=== PATIENT | male | born 1965 | race Caucasian/White ===

== ENCOUNTER 2021-09-20 10:35 | Outpatient (CLI) | payer OTHER ==
[~2021-09-20] VITALS: Ht 175 cm; Wt 104.0 kg
[2021-09-20 10:40] VITALS: BP 119/44
[2021-09-20] MEDS ORDERED: ONDANSETRON 4 MG/2 ML (SDV) Z0FRAN IV PRN (11:15)
[2021-09-20] MEDS ORDERED: EPINEPHrine INJECTION 1 MG/ML AMP IM PRN (11:15)
[2021-09-20] MEDS ORDERED: BAMLANIVIMAB 700 MG/ETESEVIMAB 1,400 MG IN NS IV ONE ×3 (11:15)
[2021-09-20] MEDS ORDERED: ACETAMINOPHEN 500 MG TAB (TYLENOL) PO PRN (11:15)
[2021-09-20] MEDS ORDERED: diphenhydrAMINE 50 MG/ML INJ (BENADRYL) IV PRN (11:15)
[2021-09-20 12:31] VITALS: BP 114/63
== END 2021-09-20 12:39 | disposition home or self-care (01) ==
LOC: INFUSION 10:35
PROVIDERS: ATTEND Family Medicine
DX: U07.1 COVID-19 (principal)

== ENCOUNTER 2021-09-24 15:53 | Inpatient (IN) | payer OTHER ==
[~2021-09-24] VITALS: Ht 176 cm; Wt 93.6 kg
[2021-09-24 16:37] LABS: ABG PCO2 24 MMHG (35-45); ABG PH 7.56 (7.37-7.43); ABG PO2 61 MMHG (79-93)
[2021-09-24 16:38] LABS: ABG BASE EXCESS 0.6 MMOL/L (-2.5-2.5); ABG OXYGEN SATURATION 94 % (94-100); ABG TCO2 22.2 MMOL/L (21.0-31.0); ALLENS TEST YES-POS; PATIENT TEMP 37.6; VENTILATOR NO
[2021-09-24 16:41] LABS: WHITE BLOOD COUNT 14.5 10^3/uL (4.3-11.0)
[2021-09-24 16:42] LABS: BASOPHILS % (AUTO) 0 % (0-10); EOSINOPHILS % (AUTO) 0 % (0-10); HEMATOCRIT 45 % (40-54); HEMOGLOBIN 16.2 g/dL (13.3-17.7); LYMPHOCYTES # (AUTO) 1.1 X 10^3 (1.0-4.0); LYMPHOCYTES % (AUTO) 7 % (12-44); MEAN CORPUSCULAR HEMOGLOBIN 33 pg (25-34); MEAN CORPUSCULAR HGB CONC 36 g/dL (32-36); MEAN CORPUSCULAR VOLUME 92 fL (80-99); MEAN PLATELET VOLUME 10.1 fL (9.0-12.2); MONOCYTES % (AUTO) 5 % (0-12); NEUTROPHILS # (AUTO) 12.5 X 10^3 (1.8-7.8); NEUTROPHILS % (AUTO) 86 % (42-75); PLATELET COUNT 269 10^3/uL (130-400)
[2021-09-24 16:43] LABS: MONOCYTES # (AUTO) 0.7 X 10^3 (0.0-1.0)
[2021-09-24 16:46] LABS: INR 1.1 (0.8-1.4); PROTHROMBIN TIME PATIENT 14.7 SEC (12.2-14.7)
[2021-09-24 17:05] LABS: POTASSIUM 3.7 MMOL/L (3.6-5.0); SODIUM 133 MMOL/L (135-145)
[2021-09-24 17:06] LABS: BUN/CREATININE RATIO 12; CARBON DIOXIDE 22 MMOL/L (21-32); CHLORIDE 96 MMOL/L (98-107); CREATININE SERUM 1.37 MG/DL (0.60-1.30); GFR ESTIMATED 54
[2021-09-24 17:07] LABS: ALANINE AMINOTRANSFERASE 65 U/L (0-55); ALBUMIN 3.1 GM/DL (3.2-4.5); ALKALINE PHOSPHATASE 63 U/L (40-136); BILIRUBIN,TOTAL 1.7 MG/DL (0.1-1.0); CALCIUM 8.6 MG/DL (8.5-10.1); GLUCOSE 132 MG/DL (70-105); TOTAL PROTEIN 7.5 GM/DL (6.4-8.2)
[2021-09-24 17:15] LABS: INSPIRED O2 BPAP 80%
[2021-09-24 17:27] LABS: ATYPICAL LYMPHOCYTES 1 %; BAND NEUTROPHILS 6 %; LYMPHOCYTES % (MANUAL) 8 %; METAMYELOCYTES % 1 %; MONOCYTES % (MANUAL) 4 %; MYELOCYTES % 1 %; NEUTROPHILS % (MANUAL) 79 %
[2021-09-24 17:28] LABS: PLATELET ESTIMATE NORMAL; RBC MORPH NORMAL
[2021-09-24] MEDS ORDERED: CATHETER FLUSH 10 ML SYR IV PRN (17:30)
[2021-09-24] MEDS ORDERED: NS 100 ML (IVPB) BAG IV ONE (17:30)
[2021-09-24] MEDS ORDERED: IOHEXOL 350 MG/ML 100 ML (OMNIPAQUE 350) VIAL IV ONE (17:30)
[2021-09-24] MEDS ORDERED: HOLD METFORMIN - RECEIVED CONTRAST 20 ML VIAL IV SCH (17:30)
--- NOTE | 2021-09-24 18:02 | Diagnostic Imaging Report ---
INDICATION: Shortness of air. TIME OF EXAM: 5:43 PM COMPARISON: No prior studies are available for comparison. FINDINGS: The heart is enlarged. There are peripherally-based infiltrates in both lungs suggestive of pneumonia. This could be secondary to COVID 19 pneumonia. No effusion or pneumothorax is seen. IMPRESSION: Bilateral infiltrates consistent with pneumonia. Dictated by: Dictated on workstation # [id number]
--- NOTE | 2021-09-24 18:03 | Diagnostic Imaging Report ---
PROCEDURE: CT angiography Chest TECHNIQUE: After intravenous administration of contrast, thin section axial CT angiography of the chest was performed. 3D MIP reconstructions were made. All CT scans use one or more of the following dose optimizing techniques: automated exposure control, MA and/or KvP adjustment based on a patient size and exam type, or iterative reconstruction. INDICATION: Shortness of air COMPARISON: Chest radiograph from same day FINDINGS: Vasculature: No pulmonary emboli to level of segmental pulmonary arteries. Respiratory motion artifact limits assessment of the distal segmental and subsegmental pulmonary arteries in the lung bases. Thoracic aorta is normal in caliber. No aortic dissection or pseudoaneurysm. Heart and mediastinum: Visualized thyroid is normal. No supraclavicular, axillary, or intra-thoracic lymphadenopathy. The heart is normal in size without pericardial effusion. Pleura: No pleural effusion or pneumothorax. Lungs and airway: No endoluminal lesion in the trachea or central bronchi. Multifocal groundglass attenuation and consolidations are present throughout both lungs. Upper abdomen: Allowing for the phase of contrast, no acute abnormality in the upper abdomen is seen. Musculoskeletal: No concerning osseous lesion. IMPRESSION: 1. No pulmonary emboli or acute aortic syndrome. 2. Bilateral multifocal groundglass and consolidations is appearance most compatible with acute lung injury and frequently seen with Covid-19 or other atypical infection. Dictated by: Dictated on workstation # [id number]
[2021-09-24] MEDS ORDERED: CEFEPIME INJECTION 1,000 MG in NS (IVPB) 50 ML IV ONE (18:45)
[2021-09-24] MEDS ORDERED: FUROSEMIDE 40 MG/4 ML INJ (LASIX) IVP ONE (18:45)
[2021-09-24] MEDS ORDERED: polyethylene glycoL POWDER 17 GM (MIRALAX) PACK PO PRN (19:45)
[2021-09-24] MEDS ORDERED: morphine INJ 4 MG/ML 1 ML (VIAL/SYRINGE) IV PRN (19:45)
[2021-09-24] MEDS ORDERED: ACETAMINOPHEN 500 MG TAB (TYLENOL) PO PRN (19:45)
[2021-09-24] MEDS ORDERED: diphenhydrAMINE 25 MG TAB (BENADRYL) PO PRN (19:45)
[2021-09-24] MEDS ORDERED: ANTACID SUSP 30 ML UDC (MYLANTA) PO PRN (19:45)
[2021-09-24] MEDS ORDERED: MELATONIN 3 MG TABLET PO PRN (19:45)
[2021-09-24] MEDS ORDERED: KETOROLAC 15 MG/ML VIAL IV PRN (19:45)
[2021-09-24] MEDS ORDERED: ONDANSETRON 4 MG (ZOFRAN) ORAL DISSOLVE TAB PO PRN (19:45)
[2021-09-24] MEDS ORDERED: ONDANSETRON 4 MG/2 ML (SDV) Z0FRAN IV PRN (19:45)
[2021-09-24] MEDS ORDERED: diphenhydrAMINE 50 MG/ML INJ (BENADRYL) IVP PRN (19:45)
[2021-09-24] MEDS ORDERED: ACETAMINOPHEN 325 MG TABLET PO PRN (19:45)
[2021-09-24] MEDS ORDERED: BISACODYL 10 MG SUPP (DULCOLAX) PR PRN (19:45)
[2021-09-24 19:50] VITALS: BP 151/100
[2021-09-24 20:00] VITALS: BP 138/96
[2021-09-24 20:09] VITALS: BP 153/98
[2021-09-24] MEDS: NS IV 1000 ML 1,000 ML IV SCH (20:18)
[2021-09-24 20:24] VITALS: BP 135/76
[2021-09-24] MEDS ORDERED: RT-ALBUTEROL HFA 8.5 GM INHALER IH PRN (20:30)
[2021-09-24] MEDS ORDERED: NS (IVPB) 50 ML ONE (20:33)
[2021-09-24] MEDS ORDERED: CEFEPIME 1 GM/10 ML (MAXIPIME) VIAL ONE (20:33)
[2021-09-24] MEDS: CEFEPIME INJECTION 2,000 MG in NS (IVPB) 50 ML IV SCH (20:40)
[2021-09-24] MEDS: ENOXAPARIN 100 MG/1 ML (LOVENOX) SYR SC SCH ×2 (20:48→23:36)
[2021-09-24] MEDS: inSUlin ASPART (NovoLOG) 1 UNIT/0.01 ML (CHARGE PER UNIT) SC SCH (21:00)
[2021-09-24] MEDS: RT-ALBUTEROL HFA 8.5 GM INHALER IH SCH (21:37)
[2021-09-24 21:38] VITALS: BP 113/79
--- NOTE | 2021-09-24 22:06 | Tele-ICU Consult ---
History of Present Illness History of Present Illness Date Seen by Provider: Sep 24, 2021 Time Seen by Provider: 22:06 History of Present Illness 55 yo M with COVID PNA, CXR shows bilateral peripheral infiltrates started on IV decadron, Cefepime, WBC 17k, D dimer 2.33, started on bid lovenox, given IV Lasix for BNP almost 1000 On BiPAP 25/09 FiO2 70%, tolerating well, did not do well on CPAP PMH HTN, not much medical attention, no previous surgeries, no EtOH, no smoking not vaccinated for COVID, got flu vaccine Allergies and Home Medications Allergies Coded Allergies: No Known Drug Allergies (Unverified , 09/20/21) Past Medical/Social/Family Hx Patient Social History Tobacco Use?: No Use of E-Cig and/or Vaping dev: No Substance use?: No Alcohol Use?: No Pt stated abuse/neglect: No Immunizations Up To Date Influenza Vaccine Up-to-Date: Yes; Up-to-Date First/Initial COVID19 Vaccinat: n/a Current Status Advance Directives: No Communicates: Verbally Primary Language: Slovenian Preferred Spoken Language: Slovenian Is interpretation needed?: No Implanted or Applied Medical D: None Review of Systems Constitutional: see HPI Focused Exam Lactate Level 09/24/21 16:05: Lactic Acid Level 2.68*H Height, Weight, BMI Height: '" Weight: lbs. oz. kg; 32.28 BMI Method: Exam Exam Patient acknowledged, consented, and participated in this virtual visit which was conducted using real time audio/video Vital Signs Date Time Temp Pulse Resp B/P (MAP) Pulse Ox O2 Delivery O2 Flow Rate FiO2 09/24/21 21:38 90 27 91 70.00 09/24/21 20:48 38.6 09/24/21 20:24 37.3 97 94 100 09/24/21 20:19 38.8 09/24/21 20:09 101 31 95 70.00 09/24/21 20:00 38.8 101 31 138/96 (110) NIV Bilevel 70.00 09/24/21 19:50 94 NIV Bilevel 70 09/24/21 19:50 38.8 105 27 151/100 (117) 85 NIV CPAP 09/24/21 19:20 93 34 128/78 93 NIV Bilevel 100.00 09/24/21 16:35 NIV Bilevel 09/24/21 16:21 95 NIV Bilevel 80 09/24/21 16:00 37.3 97 24 135/76 (95) 94 NIV Bilevel Height & Weight Height: '" Weight: lbs. oz. kg; 32.28 BMI Method: General Appearance: Mild Distress Respiratory: Decreased Breath Sounds Cardiovascular: Regular Rate, Rhythm, No Edema, Tachycardia Capillary Refill: Less Than 3 Seconds Gastrointestinal: normal bowel sounds, non tender, soft Results Lab Laboratory Tests 09/24/21 16:05 Assessment/Plan Assessment/Plan COVID PNA, will continue present meds, watch SpO2, leave on BiPAP for now Critical Care: Critically Ill Patient Time spent with patient (mins): 30 TERRY MELENDREZ MD Sep 24, 2021 22:06
[2021-09-25] MEDS: NS IV 1000 ML 1,000 ML IV SCH ×3 (02:26→18:52)
[2021-09-25 02:45] VITALS: BP 112/76
[2021-09-25] MEDS: RT-ALBUTEROL HFA 8.5 GM INHALER IH SCH ×6 (02:45→22:33)
[2021-09-25 05:08] LABS: ABG BASE EXCESS -2.3 MMOL/L (-2.5-2.5); ABG OXYGEN SATURATION 98 % (94-100); ABG PCO2 28 MMHG (35-45); ABG PH 7.48 (7.37-7.43); ABG PO2 100 MMHG (79-93); ABG TCO2 21.5 MMOL/L (21.0-31.0); ALLENS TEST YES-POS; INSPIRED O2 70%; PATIENT TEMP 36.4; VENTILATOR NO
[2021-09-25 06:09] LABS: BASOPHILS % (AUTO) 0 % (0-10); EOSINOPHILS % (AUTO) 0 % (0-10); HEMATOCRIT 41 % (40-54); HEMOGLOBIN 14.5 g/dL (13.3-17.7); LYMPHOCYTES # (AUTO) 0.7 10^3/uL (1.0-4.0); LYMPHOCYTES % (AUTO) 6 % (12-44); MEAN CORPUSCULAR HEMOGLOBIN 33 pg (25-34); MEAN CORPUSCULAR HGB CONC 35 g/dL (32-36); MEAN CORPUSCULAR VOLUME 95 fL (80-99); MEAN PLATELET VOLUME 9.9 fL (9.0-12.2); MONOCYTES # (AUTO) 0.4 10^3/uL (0.0-1.0); MONOCYTES % (AUTO) 3 % (0-12); NEUTROPHILS # (AUTO) 11.5 10^3/uL (1.8-7.8); NEUTROPHILS % (AUTO) 90 % (42-75); PLATELET COUNT 222 10^3/uL (130-400); WHITE BLOOD COUNT 12.9 10^3/uL (4.3-11.0)
[2021-09-25 06:30] LABS: ALBUMIN 2.9 GM/DL (3.2-4.5); POTASSIUM 3.2 MMOL/L (3.6-5.0)
[2021-09-25 06:31] LABS: CALCIUM 8.2 MG/DL (8.5-10.1)
[2021-09-25 06:32] LABS: TOTAL PROTEIN 6.4 GM/DL (6.4-8.2)
[2021-09-25 06:34] LABS: BILIRUBIN,TOTAL 1.5 MG/DL (0.1-1.0)
[2021-09-25 06:36] LABS: CREATININE SERUM 1.14 MG/DL (0.60-1.30); PHOSPHORUS 3.9 MG/DL (2.3-4.7)
[2021-09-25] MEDS: inSUlin ASPART (NovoLOG) 1 UNIT/0.01 ML (CHARGE PER UNIT) SC SCH ×4 (06:38→20:38)
[2021-09-25 06:39] LABS: MAGNESIUM 2.4 MG/DL (1.6-2.4)
[2021-09-25] MEDS: MAGNESIUM 1 GM/100 ML IVPB 100 ML IV SCH (06:39)
[2021-09-25] MEDS: POTASSIUM CL 10MEQ/50ML IVPB 50 ML IV SCH (06:40)
[2021-09-25] MEDS: KCL 20 MEQ TAB (K-DUR) PO SCH (06:41)
--- NOTE | 2021-09-25 06:52 | History & Physical-Hospitalist ---
History of Present Illness HPI/Chief Complaint CC: Respiratory failure HPI: [facility] 55[facility] who presents with Covid-19 acute hypoxic respiratory failure. He is currently on BiPAP at 70%, having real difficulty with compliance with change of positions and lying on his side. Patient denies any pain. Check meds and labs. Talked to RN. Source: patient Exam Limitations: clinical condition Date Seen 09/25/21 Time Seen by a Provider: 10:00 Attending Physician Ines Francois Pankaj K MD Referring Physician Date of Admission Sep 24, 2021 at 19:48 Home Medications & Allergies Home Medications Reviewed patient Home Medication Reconciliation performed by pharmacy medication reconciliations remote broadcast technician and/or nursing. Patients Allergies have been reviewed. Allergies Allergies Coded Allergies No Known Drug Allergies ([id number]/17/21) Past Gzgyddy-Lgietg-Xhddqb Hx Patient Social History Marrital Status: single Tobacco Use?: No Smoking Status: Current Everyday Smoker Use of E-Cig and/or Vaping dev: No Substance use?: No Alcohol Use?: No Pt feels they are or have been: No Immunizations Up To Date First/Initial COVID19 Vaccinat: n/a Current Status Advance Directives: No Communicates: Verbally Primary Language: Croatian Preferred Spoken Language: Croatian Is interpretation needed?: No Implanted or Applied Medical D: None Past Medical History Hypertension Review of Systems Constitutional: see HPI, dizziness, fever, malaise, weakness EENTM: no symptoms reported Respiratory: dyspnea on exertion, short of breath Cardiovascular: no symptoms reported Gastrointestinal: no symptoms reported Genitourinary: no symptoms reported Musculoskeletal: no symptoms reported Skin: no symptoms reported Psychiatric/Neurological: Anxiety All Other Systems Reviewed Negative Unless Noted: Yes Physical Exam Physical Exam Vital Signs Vital Signs - First Documented 09/24/21 09/24/21 09/24/21 16:00 16:21 19:20 Temp 37.3 Pulse 97 Resp 24 B/P (MAP) 135/76 (95) Pulse Ox 94 O2 Delivery NIV Bilevel O2 Flow Rate 100.00 FiO2 80 Capillary Refill : Less Than 3 Seconds Height, Weight, BMI Height: '" Weight: lbs. oz. kg; 32.28 BMI Method: General Appearance: Anxious, Chronically ill, Mild Distress Eyes: Right Eye Normal Inspection, Right Eye PERRL HEENT: PERRL/EOMI, Normal ENT Inspection, Pharynx Normal, Moist Mucous Membranes Neck: Full Range of Motion, Normal Inspection, Non Tender Respiratory: Chest Non Tender, Lungs Clear, No Respiratory Distress, Accessory Muscle Use, Decreased Breath Sounds Cardiovascular: Regular Rate, Rhythm, No Edema, No Gallop, No JVD, No Murmur, Normal Peripheral Pulses Gastrointestinal: Normal Bowel Sounds, No Organomegaly, No Pulsatile Mass, Non Tender, Soft Back: Normal Inspection, No CVA Tenderness, No Vertebral Tenderness Extremity: Normal Capillary Refill, Normal Inspection, Normal Range of Motion, Non Tender, No Calf Tenderness, No Pedal Edema Neurologic/Psychiatric: Alert, Oriented x3, No Motor/Sensory Deficits, Normal Mood/Affect Skin: Normal Color, Warm/Dry Lymphatic: No Adenopathy Results Results/Procedures Labs Laboratory Tests 09/24/21 16:05 09/25/21 05:40 Patient resulted labs reviewed. Assessment/Plan Admission Diagnosis Assessment: Acute hypoxic respiratory failure COVID-19 pneumonia Smoker Hypertension Plan: COVID-19 protocol BiPAP Vapotherm High risk for intubation Admission Status: Inpatient Order (span 2 midnights) Reason for Inpatient Admission: Respiratory failure Diagnosis/Problems Diagnosis/Problems (1) INES CHAUDHRY DO Sep 25, 2021 06:52
[2021-09-25 07:48] VITALS: BP 124/84
[2021-09-25] MEDS ORDERED: KCL 20 MEQ TAB (K-DUR) PO ONE ×2 (08:00→10:00)
[2021-09-25] MEDS: CEFEPIME INJECTION 2,000 MG in NS (IVPB) 50 ML IV SCH ×2 (09:48→19:54)
[2021-09-25] MEDS ORDERED: MULT-1067 PO (10:13)
[2021-09-25] MEDS ORDERED: ATEN25TA PO (10:13)
[2021-09-25] MEDS ORDERED: LOSA50TA63 PO (10:13)
[2021-09-25 10:48] VITALS: BP 133/96
--- NOTE | 2021-09-25 11:21 | Tele-ICU Progress Note ---
Subjective Date Seen by a Provider: Sep 25, 2021 Time Seen by a Provider: 11:21 Subjective/Events-last exam he was earlier tried on vapotherm but did not tolerate. back on bipap Review of Systems ros per RN Sepsis Event Evaluation Height, Weight, BMI Height: '" Weight: lbs. oz. kg; 32.28 BMI Method: Focused Exam Lactate Level 09/24/21 16:05: Lactic Acid Level 2.68*H 09/24/21 22:21: Lactic Acid Level 1.74 Exam Exam Patient acknowledged, consented, and participated in this virtual visit which was conducted using real time audio/video Vital Signs Date Time Temp Pulse Resp B/P (MAP) Pulse Ox O2 Delivery O2 Flow Rate FiO2 09/25/21 10:50 90 Vapotherm 40.00 09/25/21 10:48 82 27 91 70.00 09/25/21 08:00 94 NIV Bilevel 70 09/25/21 08:00 36.9 09/25/21 07:48 77 28 93 70.00 09/25/21 07:00 77 09/25/21 06:00 78 19 124/84 93 NIV Bilevel 70.00 09/25/21 05:00 80 23 131/91 95 NIV Bilevel 70.00 09/25/21 04:00 36.4 78 24 137/96 94 NIV Bilevel 70.00 09/25/21 04:00 78 24 137/96 94 NIV Bilevel 70.00 09/25/21 03:57 96 NIV Bilevel 70 09/25/21 03:00 78 23 121/86 94 NIV Bilevel 70.00 09/25/21 02:45 77 29 93 70.00 09/25/21 02:00 80 27 112/76 93 NIV Bilevel 70.00 09/25/21 01:00 79 25 114/77 93 NIV Bilevel 70.00 09/25/21 01:00 80 09/25/21 00:00 80 28 109/81 94 NIV Bilevel 70.00 09/24/21 23:56 36.7 09/24/21 23:24 94 NIV Bilevel 70 09/24/21 23:00 83 28 117/81 92 NIV Bilevel 70.00 09/24/21 22:45 36.8 09/24/21 22:00 87 29 115/76 91 NIV Bilevel 70.00 09/24/21 21:38 90 27 91 70.00 09/24/21 21:00 98 31 120/88 93 NIV Bilevel 70.00 09/24/21 20:48 38.6 09/24/21 20:45 99 34 127/84 94 NIV Bilevel 70.00 09/24/21 20:30 101 34 125/89 93 NIV Bilevel 70.00 09/24/21 20:24 37.3 97 94 100 09/24/21 20:19 38.8 09/24/21 20:15 101 32 138/96 95 NIV Bilevel 70.00 09/24/21 20:09 101 31 95 70.00 09/24/21 20:00 38.8 101 31 138/96 (110) NIV Bilevel 70.00 09/24/21 20:00 100 25 153/98 95 NIV Bilevel 70.00 09/24/21 19:57 101 09/24/21 19:55 102 153/100 NIV Bilevel 70.00 09/24/21 19:50 94 NIV Bilevel 70 09/24/21 19:50 38.8 105 27 151/100 (117) 85 NIV CPAP 09/24/21 19:20 93 34 128/78 93 NIV Bilevel 100.00 09/24/21 16:35 NIV Bilevel 09/24/21 16:21 95 NIV Bilevel 80 09/24/21 16:00 37.3 97 24 135/76 (95) 94 NIV Bilevel I & O 09/25/21 07:00 Intake Total 1900 ml Output Total 1550 ml Balance 350 ml Height & Weight Height: '" Weight: lbs. oz. kg; 32.28 BMI Method: General Appearance: Mild Distress Respiratory: Decreased Breath Sounds Cardiovascular: Regular Rate, Rhythm, No Edema, Tachycardia Capillary Refill: Less Than 3 Seconds Gastrointestinal: normal bowel sounds, non tender, soft Other comments pe per rn Results Lab Laboratory Tests 09/24/21 16:05 09/25/21 05:40 Assessment/Plan Assessment/Plan 1. covid-19 viral pneumonia. 2. acute hypoxic respiratory failure due to aboe 3. High risk for dvt and pe. 4. Suspected super added bacterial pneumonia. plan. 1. continue cureent meds. 2. continue bipap. 3. monitor blood sugars. 4. dvt and ulcer prophylaxis Critical Care: Critically Ill Patient Time spent with patient (mins): 25 MARIFER DIAZ MD Sep 25, 2021 11:21
[2021-09-25 14:34] VITALS: BP 134/84
[2021-09-25 19:13] VITALS: BP 129/87
[2021-09-25] MEDS: ENOXAPARIN 100 MG/1 ML (LOVENOX) SYR SC SCH (19:55)
[2021-09-25 22:33] VITALS: BP 122/70
[2021-09-26] MEDS: NS IV 1000 ML 1,000 ML IV SCH ×3 (02:20→19:55)
[2021-09-26 02:37] VITALS: BP 141/91
[2021-09-26] MEDS: RT-ALBUTEROL HFA 8.5 GM INHALER IH SCH ×6 (02:37→22:52)
[2021-09-26 03:36] LABS: ABG OXYGEN SATURATION 94 % (94-100); ABG PCO2 28 MMHG (35-45); ABG PH 7.47 (7.37-7.43); ABG PO2 66 MMHG (79-93)
[2021-09-26 03:39] LABS: ALLENS TEST POSITIVE; INSPIRED O2 BIPAP 70%; PATIENT TEMP 36.4; VENTILATOR NO
[2021-09-26 06:08] LABS: BASOPHILS % (AUTO) 0 % (0-10); EOSINOPHILS % (AUTO) 0 % (0-10); HEMATOCRIT 39 % (40-54); HEMOGLOBIN 13.5 g/dL (13.3-17.7); LYMPHOCYTES # (AUTO) 0.7 10^3/uL (1.0-4.0); LYMPHOCYTES % (AUTO) 4 % (12-44); MEAN CORPUSCULAR HEMOGLOBIN 33 pg (25-34); MEAN CORPUSCULAR HGB CONC 35 g/dL (32-36); MEAN CORPUSCULAR VOLUME 95 fL (80-99); MONOCYTES # (AUTO) 0.6 10^3/uL (0.0-1.0); MONOCYTES % (AUTO) 3 % (0-12); NEUTROPHILS # (AUTO) 15.2 10^3/uL (1.8-7.8); NEUTROPHILS % (AUTO) 91 % (42-75); PLATELET COUNT 236 10^3/uL (130-400); WHITE BLOOD COUNT 16.7 10^3/uL (4.3-11.0)
[2021-09-26 06:33] LABS: ALBUMIN 2.6 GM/DL (3.2-4.5); BILIRUBIN,TOTAL 0.8 MG/DL (0.1-1.0); CALCIUM 8.6 MG/DL (8.5-10.1); CREATININE SERUM 0.82 MG/DL (0.60-1.30); MAGNESIUM 2.2 MG/DL (1.6-2.4); PHOSPHORUS 2.3 MG/DL (2.3-4.7); POTASSIUM 3.8 MMOL/L (3.6-5.0); TOTAL PROTEIN 6.1 GM/DL (6.4-8.2)
[2021-09-26] MEDS: KCL 20 MEQ TAB (K-DUR) PO SCH (06:43)
[2021-09-26] MEDS: POTASSIUM CL 10MEQ/50ML IVPB 50 ML IV SCH (06:43)
[2021-09-26] MEDS: MAGNESIUM 1 GM/100 ML IVPB 100 ML IV SCH (06:43)
[2021-09-26] MEDS: inSUlin ASPART (NovoLOG) 1 UNIT/0.01 ML (CHARGE PER UNIT) SC SCH ×4 (06:44→21:00)
[2021-09-26 07:58] VITALS: BP 152/88
[2021-09-26] MEDS: ATENOLOL 25 MG (TENORMIN) TAB PO SCH (10:30)
[2021-09-26] MEDS: MULTIVIT W/MINERALS TAB (THERAGRAN M) PO SCH (10:30)
[2021-09-26] MEDS: LOSARTAN 50 MG (COZAAR) TAB PO SCH (10:30)
[2021-09-26] MEDS: ENOXAPARIN 100 MG/1 ML (LOVENOX) SYR SC SCH ×2 (10:30→19:56)
[2021-09-26] MEDS: CEFEPIME INJECTION 2,000 MG in NS (IVPB) 50 ML IV SCH ×2 (10:31→19:56)
--- NOTE | 2021-09-26 10:50 | Progress Note - Hospitalist ---
Subjective HPI/CC On Admission Date Seen by Provider: Sep 26, 2021 Time Seen by Provider: 11:30 CC: Respiratory failure HPI: This is a 55yoWM clinic Pt of [facility] who presents with Covid-19 acute hypoxic respiratory failure. He is currently on BiPAP at 70%, having real difficulty with compliance with change of positions and lying on his side. Patient denies any pain. Check meds and labs. Talked to RN. Subjective/Events-last exam Pt doing about the same Pt needs Actemra: Talked to him about the risk and benefits of this medication the best I could and he had no questions and agreed for infusion Checked meds and labs Pneumonia treated with standard protocol Feels like he is doing a little better today Review of Systems General: Fatigue, Malaise Pulmonary: Dyspnea Focused Exam Lactate Level 09/24/21 16:05: Lactic Acid Level 2.68*H 09/24/21 22:21: Lactic Acid Level 1.74 Objective Exam Vital Signs Vital Signs Date Time Temp Pulse Resp B/P (MAP) Pulse Ox O2 Delivery O2 Flow Rate FiO2 09/27/21 04:00 80 27 151/96 92 NIV Bilevel 70.00 09/27/21 03:55 70 09/27/21 03:54 36.3 Capillary Refill : Less Than 3 Seconds General Appearance: Anxious, Chronically ill, Mild Distress, Obese Respiratory: Lungs Clear, Normal Breath Sounds, Decreased Breath Sounds Cardiovascular: Regular Rate, Rhythm Neurologic/Psychiatric: Alert, Oriented x3, No Motor/Sensory Deficits, Normal Mood/Affect Results/Procedures Lab Laboratory Tests 09/26/21 06:00 Patient resulted labs reviewed. Assessment/Plan Assessment and Plan Assess & Plan/Chief Complaint Assessment: Acute hypoxic respiratory failure COVID-19 pneumonia Smoker Hypertension Plan: COVID-19 protocol BiPAP Vapotherm High risk for intubation 09/26/2021: Actemra infusion High risk for intubation Critical Care Critically Ill Patient Diagnosis/Problems Diagnosis/Problems (1) MONSERRAT CHAUDHRY DO Sep 26, 2021 10:49
[2021-09-26 14:39] VITALS: BP 135/77
[2021-09-26 18:53] VITALS: BP 135/77
[2021-09-26 22:52] VITALS: BP 160/92
[2021-09-27 01:53] VITALS: BP 150/94
[2021-09-27] MEDS: RT-ALBUTEROL HFA 8.5 GM INHALER IH SCH ×6 (01:53→22:28)
[2021-09-27] MEDS: NS IV 1000 ML 1,000 ML IV SCH ×3 (03:30→21:19)
[2021-09-27 03:52] LABS: ABG BASE EXCESS -4.3 MMOL/L (-2.5-2.5); ABG OXYGEN SATURATION 90 % (94-100); ABG PCO2 24 MMHG (35-45); ABG PO2 53 MMHG (79-93); ABG TCO2 19.3 MMOL/L (21.0-31.0)
[2021-09-27 03:54] LABS: ALLENS TEST POSITIVE; INSPIRED O2 % BIPAP; PATIENT TEMP 36.3; VENTILATOR NO
[2021-09-27 06:06] LABS: BASOPHILS % (AUTO) 0 % (0-10); EOSINOPHILS % (AUTO) 0 % (0-10); HEMATOCRIT 40 % (40-54); HEMOGLOBIN 14.1 g/dL (13.3-17.7); LYMPHOCYTES # (AUTO) 0.7 10^3/uL (1.0-4.0); LYMPHOCYTES % (AUTO) 5 % (12-44); MEAN CORPUSCULAR HEMOGLOBIN 34 pg (25-34); MEAN CORPUSCULAR HGB CONC 35 g/dL (32-36); MEAN CORPUSCULAR VOLUME 96 fL (80-99); MEAN PLATELET VOLUME 9.5 fL (9.0-12.2); MONOCYTES # (AUTO) 0.5 10^3/uL (0.0-1.0); MONOCYTES % (AUTO) 4 % (0-12); NEUTROPHILS # (AUTO) 11.9 10^3/uL (1.8-7.8); NEUTROPHILS % (AUTO) 89 % (42-75); PLATELET COUNT 244 10^3/uL (130-400); WHITE BLOOD COUNT 13.4 10^3/uL (4.3-11.0)
--- NOTE | 2021-09-27 06:16 | Progress Note - Hospitalist ---
Subjective HPI/CC On Admission Date Seen by Provider: Sep 27, 2021 Time Seen by Provider: 11:00 CC: Respiratory failure HPI: This is a 55yoWM clinic Pt of [facility] who presents with Covid-19 acute hypoxic respiratory failure. He is currently on BiPAP at 70%, having real difficulty with compliance with change of positions and lying on his side. Patient denies any pain. Check meds and labs. Talked to RN. Subjective/Events-last exam Patient about the same BiPAP dependent Will receive Actemra today I spoke with him regarding the benefits and the risks Checked meds labs Review of Systems General: Fatigue, Malaise Pulmonary: Dyspnea Focused Exam Lactate Level 09/24/21 22:21: Lactic Acid Level 1.74 Objective Exam Vital Signs Vital Signs Date Time Temp Pulse Resp B/P (MAP) Pulse Ox O2 Delivery O2 Flow Rate FiO2 09/27/21 14:36 75 28 94 65.00 09/27/21 14:00 151/94 NIV Bilevel 09/27/21 12:42 65 09/27/21 12:00 37.1 Capillary Refill : Less Than 3 Seconds General Appearance: No Apparent Distress, WD/WN, Anxious, Chronically ill Respiratory: No Respiratory Distress, Accessory Muscle Use, Decreased Breath Sounds Cardiovascular: Regular Rate, Rhythm Neurologic/Psychiatric: Alert, Oriented x3, No Motor/Sensory Deficits, Normal Mood/Affect Results/Procedures Lab Laboratory Tests 09/27/21 05:56 Patient resulted labs reviewed. Assessment/Plan Assessment and Plan Assess & Plan/Chief Complaint Assessment: Acute hypoxic respiratory failure COVID-19 pneumonia Smoker Hypertension Plan: COVID-19 protocol BiPAP Vapotherm High risk for intubation 09/26/2021: Actemra infusion High risk for intubation 09/27/2021: Actemra BiPAP Critical Care Critically Ill Patient Diagnosis/Problems Diagnosis/Problems (1) MONSERRAT CHAUDHRY DO Sep 27, 2021 06:16
[2021-09-27 06:35] LABS: ALBUMIN 2.6 GM/DL (3.2-4.5); BILIRUBIN,TOTAL 0.7 MG/DL (0.1-1.0); CALCIUM 8.3 MG/DL (8.5-10.1); CREATININE SERUM 0.87 MG/DL (0.60-1.30); PHOSPHORUS 2.7 MG/DL (2.3-4.7)
[2021-09-27] MEDS: inSUlin ASPART (NovoLOG) 1 UNIT/0.01 ML (CHARGE PER UNIT) SC SCH ×4 (07:45→20:43)
[2021-09-27] MEDS: POTASSIUM CL 10MEQ/50ML IVPB 50 ML IV SCH (07:46)
[2021-09-27] MEDS: MAGNESIUM 1 GM/100 ML IVPB 100 ML IV SCH (07:46)
[2021-09-27] MEDS: KCL 20 MEQ TAB (K-DUR) PO SCH (07:46)
[2021-09-27 07:57] VITALS: BP 164/106
[2021-09-27] MEDS: MULTIVIT W/MINERALS TAB (THERAGRAN M) PO SCH (08:19)
[2021-09-27] MEDS: ENOXAPARIN 100 MG/1 ML (LOVENOX) SYR SC SCH ×2 (08:19→18:53)
[2021-09-27] MEDS: LOSARTAN 50 MG (COZAAR) TAB PO SCH (08:19)
[2021-09-27] MEDS: ATENOLOL 25 MG (TENORMIN) TAB PO SCH (08:19)
[2021-09-27] MEDS: CEFEPIME INJECTION 2,000 MG in NS (IVPB) 50 ML IV SCH ×2 (08:19→20:33)
[2021-09-27] MEDS ORDERED: hydrALAZINE (APESOLINE) 20 MG/ML VIAL IV PRN (10:45)
[2021-09-27 11:05] VITALS: BP 161/93
--- NOTE | 2021-09-27 11:36 | Tele-ICU Progress Note ---
Subjective Date Seen by a Provider: Sep 27, 2021 Time Seen by a Provider: 11:35 Sepsis Event Evaluation Height, Weight, BMI Height: '" Weight: lbs. oz. kg; 32.28 BMI Method: Focused Exam Lactate Level 09/24/21 16:05: Lactic Acid Level 2.68*H 09/24/21 22:21: Lactic Acid Level 1.74 Exam Exam Patient acknowledged, consented, and participated in this virtual visit which was conducted using real time audio/video Vital Signs Date Time Temp Pulse Resp B/P (MAP) Pulse Ox O2 Delivery O2 Flow Rate FiO2 09/27/21 11:05 82 25 93 65.00 09/27/21 10:00 82 28 148/94 90 NIV Bilevel 65.00 09/27/21 09:00 81 27 169/101 89 NIV Bilevel 65.00 09/27/21 08:24 NIV Bilevel 65.00 09/27/21 08:00 82 23 164/96 90 NIV Bilevel 70.00 09/27/21 08:00 92 NIV Bilevel 65 09/27/21 07:57 82 26 90 65.00 09/27/21 07:51 36.8 09/27/21 07:00 75 09/27/21 07:00 75 21 164/106 92 NIV Bilevel 70.00 09/27/21 06:13 95 NIV Bilevel 70 09/27/21 06:00 80 25 169/94 93 NIV Bilevel 70.00 09/27/21 05:00 74 25 144/93 90 NIV Bilevel 70.00 09/27/21 04:00 80 27 151/96 92 NIV Bilevel 70.00 09/27/21 03:55 92 NIV Bilevel 70 09/27/21 03:54 36.3 NIV Bilevel 70.00 09/27/21 03:00 86 22 161/98 90 NIV Bilevel 65.00 09/27/21 02:00 81 23 148/89 93 NIV Bilevel 65.00 09/27/21 01:53 78 20 95 65.00 09/27/21 01:00 77 09/27/21 01:00 77 22 158/95 91 NIV Bilevel 65.00 09/27/21 00:00 77 24 151/91 91 NIV Bilevel 65.00 09/27/21 00:00 36.2 NIV Bilevel 65.00 09/26/21 23:09 95 NIV Bilevel 60 09/26/21 23:00 77 24 157/100 90 NIV Bilevel 60.00 09/26/21 22:52 80 29 88 60.00 09/26/21 22:00 78 25 154/94 92 NIV Bilevel 60.00 09/26/21 21:00 80 25 112/84 90 NIV Bilevel 60.00 09/26/21 20:47 36.3 09/26/21 20:00 81 27 153/95 90 NIV Bilevel 60.00 09/26/21 20:00 95 NIV Bilevel 60 09/26/21 19:00 85 25 138/80 90 NIV Bilevel 60.00 09/26/21 19:00 85 09/26/21 18:53 86 26 91 60.00 09/26/21 18:00 87 27 136/77 92 NIV Bilevel 60.00 09/26/21 17:00 79 25 125/84 93 NIV Bilevel 60.00 09/26/21 16:26 95 NIV Bilevel 60 09/26/21 16:00 84 26 127/78 93 NIV Bilevel 60.00 09/26/21 15:50 35.8 09/26/21 15:00 82 25 135/77 92 NIV Bilevel 60.00 09/26/21 14:39 82 28 92 60.00 09/26/21 14:00 79 26 134/83 93 NIV Bilevel 60.00 09/26/21 13:05 84 09/26/21 13:00 80 25 131/88 93 NIV Bilevel 60.00 09/26/21 12:36 95 NIV Bilevel 70 09/26/21 12:00 83 24 135/84 95 NIV Bilevel 60.00 09/26/21 11:40 37.0 I & O 09/27/21 07:00 Intake Total 2990 ml Output Total 1700 ml Balance 1290 ml Height & Weight Height: '" Weight: lbs. oz. kg; 32.28 BMI Method: General Appearance: Anxious, Chronically ill, Mild Distress, Obese HEENT: PERRL/EOMI, Normal ENT Inspection, Pharynx Normal, Moist Mucous Membranes Neck: Full Range of Motion, Normal Inspection, Non Tender Respiratory: Lungs Clear, Normal Breath Sounds, Decreased Breath Sounds Cardiovascular: Regular Rate, Rhythm Capillary Refill: Less Than 3 Seconds Gastrointestinal: normal bowel sounds, non tender, soft Extremity: Normal Capillary Refill, Normal Inspection, Normal Range of Motion, Non Tender, No Calf Tenderness, No Pedal Edema Neurologic/Psychiatric: Alert, Oriented x3, No Motor/Sensory Deficits, Normal Mood/Affect Skin: Normal Color, Warm/Dry Lymphatic: No Adenopathy Results Lab Laboratory Tests 09/26/21 06:00 09/27/21 05:56 Assessment/Plan Assessment/Plan (Tele-ICU Physician , Progress Note ) Available chart/ vitals / labs / Images reviewed Video assessment done using teleICU camera, rest of exam as per RN Discussed with RN , EXAM PER RN Events overnight : Afebrile FiO2 - I/O = Drips: Pressors: , hemodynamically stable Consultants: Hospital course: 09/24- COVID 09/27 - BIPAP 65% A/P ARF/ COVID ( CTA neg for pe 09/24 - BIPAP 65% - prone COVID PNA - steroids - lovenox full dose - sprobably can be changed to proph dose Suspected bact PNA- cont abx Lines : (Central Line Necessity Reviewed) Nur: OG: Nutrition: po Analgesia: Anxiety/ delirium VTE Prophylaxis: lamont 70 bid Stress Ulcer Prophylaxis: Glycemic Control: Plans in collaboration with bedside consultants and IM MDs. Discussed with RN to reach out if any questions or concerns A total of 33 minutes of critical care time was devoted to this patient today, required to treat and/or prevent further deterioration of critical care condition ( as above) . SURESH SIBLEY MD Sep 27, 2021 11:36
[2021-09-27] MEDS ORDERED: TOCILIZUMAB INJECTION (NON-FOR 800 MG in NS (IVPB) 60 ML IV ONE (14:00)
[2021-09-27 14:36] VITALS: BP 161/93
[2021-09-27] MEDS: ALPRAZolam 0.25 MG (XANAX) TAB PO PRN (15:32)
[2021-09-27 19:57] VITALS: BP 152/90
[2021-09-27] MEDS: ACYCLOVIR 400 MG TABLET (ZOVIRAX) PO SCH (20:33)
[2021-09-27 22:28] VITALS: BP 130/86
[2021-09-28 01:54] VITALS: BP 148/90
[2021-09-28] MEDS: RT-ALBUTEROL HFA 8.5 GM INHALER IH SCH ×6 (01:54→21:09)
[2021-09-28] MEDS: NS IV 1000 ML 1,000 ML IV SCH ×2 (05:18→11:49)
[2021-09-28 05:30] LABS: ABG BASE EXCESS -2.8 MMOL/L (-2.5-2.5); ABG OXYGEN SATURATION 94 % (94-100); ABG PCO2 23 MMHG (35-45); ABG PH 7.54 (7.37-7.43); ABG PO2 61 MMHG (79-93); ABG TCO2 20.5 MMOL/L (21.0-31.0)
[2021-09-28 05:30] LABS: BASOPHILS % (AUTO) 0 % (0-10); EOSINOPHILS # (AUTO) 0.1 10^3/uL (0.0-0.3); EOSINOPHILS % (AUTO) 1 % (0-10); HEMATOCRIT 39 % (40-54); HEMOGLOBIN 13.5 g/dL (13.3-17.7); LYMPHOCYTES # (AUTO) 0.7 10^3/uL (1.0-4.0); LYMPHOCYTES % (AUTO) 7 % (12-44); MEAN CORPUSCULAR HEMOGLOBIN 33 pg (25-34); MEAN CORPUSCULAR HGB CONC 35 g/dL (32-36); MEAN CORPUSCULAR VOLUME 95 fL (80-99); MEAN PLATELET VOLUME 9.6 fL (9.0-12.2); MONOCYTES # (AUTO) 0.4 10^3/uL (0.0-1.0); MONOCYTES % (AUTO) 3 % (0-12); NEUTROPHILS # (AUTO) 8.9 10^3/uL (1.8-7.8); NEUTROPHILS % (AUTO) 87 % (42-75); PLATELET COUNT 210 10^3/uL (130-400); WHITE BLOOD COUNT 10.2 10^3/uL (4.3-11.0)
[2021-09-28 05:32] LABS: ALLENS TEST YES-POS; INSPIRED O2 85%; PATIENT TEMP 35.4; VENTILATOR NO
[2021-09-28 05:49] LABS: ALBUMIN 2.3 GM/DL (3.2-4.5); POTASSIUM 3.9 MMOL/L (3.6-5.0)
[2021-09-28 05:51] LABS: CALCIUM 7.8 MG/DL (8.5-10.1)
[2021-09-28 05:52] LABS: TOTAL PROTEIN 5.3 GM/DL (6.4-8.2)
[2021-09-28 05:54] LABS: BILIRUBIN,TOTAL 0.8 MG/DL (0.1-1.0)
[2021-09-28 05:55] LABS: PHOSPHORUS 4.2 MG/DL (2.3-4.7)
[2021-09-28 05:56] LABS: CREATININE SERUM 0.75 MG/DL (0.60-1.30)
[2021-09-28 05:58] LABS: MAGNESIUM 2.1 MG/DL (1.6-2.4)
--- NOTE | 2021-09-28 06:07 | Progress Note - Hospitalist ---
Subjective HPI/CC On Admission Date Seen by Provider: Sep 28, 2021 Time Seen by Provider: 10:00 CC: Respiratory failure HPI: This is a 55yoWM clinic Pt of [facility] who presents with Covid-19 acute hypoxic respiratory failure. He is currently on BiPAP at 70%, having real difficulty with compliance with change of positions and lying on his side. Patient denies any pain. Check meds and labs. Talked to RN. Subjective/Events-last exam Patient about the same BiPAP dependent Updated patient on the plan Hopefully tomorrow Actemra will be helpful No BM yet Review of Systems General: Fatigue, Malaise Pulmonary: Dyspnea Objective Exam Vital Signs Vital Signs Date Time Temp Pulse Resp B/P (MAP) Pulse Ox O2 Delivery O2 Flow Rate FiO2 09/28/21 17:14 36.0 70 24 122/80 89 NIV Bilevel 85.00 09/28/21 03:50 85 Capillary Refill : Less Than 3 Seconds General Appearance: No Apparent Distress, WD/WN, Anxious, Chronically ill Respiratory: Lungs Clear, Normal Breath Sounds Cardiovascular: Regular Rate, Rhythm Neurologic/Psychiatric: Alert, Oriented x3 Results/Procedures Lab Laboratory Tests 09/28/21 05:08 Patient resulted labs reviewed. Assessment/Plan Assessment and Plan Assess & Plan/Chief Complaint Assessment: Acute hypoxic respiratory failure COVID-19 pneumonia Smoker Hypertension Plan: COVID-19 protocol BiPAP Vapotherm High risk for intubation 09/26/2021: Actemra infusion High risk for intubation 09/27/2021: Actemra BiPAP 09/28/2021: BiPAP dependent Critical Care Critically Ill Patient Diagnosis/Problems Diagnosis/Problems (1) MONSERRAT CHAUDHRY DO Sep 28, 2021 06:07
[2021-09-28] MEDS: POTASSIUM CL 10MEQ/50ML IVPB 50 ML IV SCH (06:12)
[2021-09-28] MEDS: MAGNESIUM 1 GM/100 ML IVPB 100 ML IV SCH (06:12)
[2021-09-28] MEDS: KCL 20 MEQ TAB (K-DUR) PO SCH (06:12)
[2021-09-28] MEDS: inSUlin ASPART (NovoLOG) 1 UNIT/0.01 ML (CHARGE PER UNIT) SC SCH ×4 (06:12→21:13)
[2021-09-28 06:47] VITALS: BP 147/85
[2021-09-28] MEDS: CEFEPIME INJECTION 2,000 MG in NS (IVPB) 50 ML IV SCH ×2 (10:08→20:04)
[2021-09-28] MEDS: LOSARTAN 50 MG (COZAAR) TAB PO SCH (10:08)
[2021-09-28] MEDS: ATENOLOL 25 MG (TENORMIN) TAB PO SCH (10:08)
[2021-09-28] MEDS: ACYCLOVIR 400 MG TABLET (ZOVIRAX) PO SCH ×2 (10:09→20:04)
[2021-09-28] MEDS: ENOXAPARIN 100 MG/1 ML (LOVENOX) SYR SC SCH ×2 (10:09→20:04)
[2021-09-28] MEDS: MULTIVIT W/MINERALS TAB (THERAGRAN M) PO SCH (10:09)
[2021-09-28 11:03] VITALS: BP 147/85
[2021-09-28] MEDS ORDERED: BUMETANIDE 1 MG/4 ML (BUMEX) VIAL IV NR (11:30)
--- NOTE | 2021-09-28 11:54 | Diagnostic Imaging Report ---
INDICATION: Dyspnea, respiratory failure COMPARISON: 09/24/2021 TECHNIQUE: Single radiograph of the chest dated 09/28/2021. FINDINGS: The cardiac silhouette is stable. Pulmonary vasculature appears mildly engorged. Extensive bilateral pulmonary opacities are again noted throughout the lungs bilaterally, greatest within the periphery of the lungs. Findings have severely worsened since the prior examination. No large-volume pleural effusion. No pneumothorax. No acute osseous abnormality. IMPRESSION: Significantly worsening extensive bilateral pulmonary infiltrates concerning for pneumonia. Mild central pulmonary vascular congestion without significant pleural effusion. Dictated by: Dictated on workstation # [id number]
--- NOTE | 2021-09-28 12:28 | Tele-ICU Progress Note ---
Subjective Date Seen by a Provider: Sep 28, 2021 Time Seen by a Provider: 12:28 Sepsis Event Evaluation Height, Weight, BMI Height: '" Weight: lbs. oz. kg; 32.28 BMI Method: Exam Exam Patient acknowledged, consented, and participated in this virtual visit which was conducted using real time audio/video Vital Signs Date Time Temp Pulse Resp B/P (MAP) Pulse Ox O2 Delivery O2 Flow Rate FiO2 09/28/21 12:00 64 20 149/97 96 NIV Bilevel 85.00 09/28/21 11:03 56 19 95 85.00 09/28/21 11:00 69 18 141/91 95 NIV Bilevel 85.00 09/28/21 10:00 64 24 137/82 93 NIV Bilevel 85.00 09/28/21 09:00 55 22 133/96 93 NIV Bilevel 85.00 09/28/21 08:00 36.1 09/28/21 08:00 78 24 155/96 90 NIV Bilevel 85.00 09/28/21 07:00 57 09/28/21 07:00 64 15 157/95 92 NIV Bilevel 85.00 09/28/21 06:47 56 19 95 85.00 09/28/21 06:00 53 15 145/88 92 NIV Bilevel 85.00 09/28/21 05:00 52 27 148/90 94 NIV Bilevel 85.00 09/28/21 04:00 60 13 130/82 96 NIV Bilevel 85.00 09/28/21 03:51 35.7 NIV Bilevel 85.00 09/28/21 03:50 94 NIV Bilevel 85 09/28/21 03:00 64 18 148/92 93 NIV Bilevel 65.00 09/28/21 02:00 60 16 141/87 92 NIV Bilevel 65.00 09/28/21 01:54 63 18 93 80.00 09/28/21 01:00 51 13 148/90 94 NIV Bilevel 65.00 09/28/21 01:00 55 09/28/21 00:03 92 NIV Bilevel 80 09/28/21 00:00 55 22 147/102 92 NIV Bilevel 65.00 09/27/21 23:33 NIV Bilevel 80.00 09/27/21 23:00 55 25 133/85 92 NIV Bilevel 65.00 09/27/21 22:28 78 26 92 65.00 09/27/21 22:00 56 24 160/94 93 NIV Bilevel 65.00 09/27/21 21:00 55 22 130/78 95 NIV Bilevel 65.00 09/27/21 20:30 94 NIV Bilevel 65 09/27/21 20:30 35.9 09/27/21 20:00 73 19 115/77 91 NIV Bilevel 65.00 09/27/21 19:57 68 20 93 65.00 09/27/21 19:45 NIV Bilevel 65.00 09/27/21 19:00 70 09/27/21 19:00 71 21 152/90 92 NIV Bilevel 65.00 09/27/21 18:00 66 20 150/84 95 NIV Bilevel 65.00 09/27/21 17:00 66 25 158/93 91 NIV Bilevel 65.00 09/27/21 16:42 36.2 09/27/21 16:00 92 NIV Bilevel 65 09/27/21 16:00 75 25 125/79 90 NIV Bilevel 65.00 09/27/21 15:00 77 20 157/103 92 NIV Bilevel 65.00 09/27/21 14:36 75 28 94 65.00 09/27/21 14:00 79 22 151/94 94 NIV Bilevel 65.00 09/27/21 13:00 78 09/27/21 13:00 82 18 141/84 92 NIV Bilevel 65.00 09/27/21 12:42 91 NIV Bilevel 65 I & O 09/28/21 07:00 Intake Total 4075 ml Output Total 1700 ml Balance 2375 ml Height & Weight Height: '" Weight: lbs. oz. kg; 32.28 BMI Method: General Appearance: No Apparent Distress, WD/WN, Anxious, Chronically ill HEENT: PERRL/EOMI, Normal ENT Inspection, Pharynx Normal, Moist Mucous Membranes Neck: Full Range of Motion, Normal Inspection, Non Tender Respiratory: No Respiratory Distress, Accessory Muscle Use, Decreased Breath Sounds Cardiovascular: Regular Rate, Rhythm Capillary Refill: Less Than 3 Seconds Gastrointestinal: normal bowel sounds, non tender, soft Extremity: Normal Capillary Refill, Normal Inspection, Normal Range of Motion, Non Tender, No Calf Tenderness, No Pedal Edema Neurologic/Psychiatric: Alert, Oriented x3, No Motor/Sensory Deficits, Normal Mood/Affect Skin: Normal Color, Warm/Dry Lymphatic: No Adenopathy Results Lab Laboratory Tests 09/27/21 05:56 09/28/21 05:08 Assessment/Plan Assessment/Plan (Tele-ICU Physician , Progress Note ) Available chart/ vitals / labs / Images reviewed Video assessment done using teleICU camera, rest of exam as per RN Discussed with RN , EXAM PER RN Events overnight : Afebrile FiO2 - I/O = even Drips: Pressors: , hemodynamically stable Consultants: Hospital course: 09/24- COVID 09/27 - BIPAP 65% 09/28 - Bipap 85 % , try BUMEX 1 mg A/P ARF/ COVID ( CTA neg for pe 09/24 - - Bipap 85 % , try BUMEX 1 mg , stop IVF - prone COVID PNA - steroids - lovenox full dose - probably can be changed to proph dose - repeat ddimer 09/29 Suspected bact PNA- cont abx Lines : periph (Central Line Necessity Reviewed) Nur: void OG: Nutrition: po Analgesia: Anxiety/ delirium VTE Prophylaxis: lamont 70 bid Stress Ulcer Prophylaxis: Glycemic Control: Plans in collaboration with bedside consultants and IM MDs. Discussed with RN to reach out if any questions or concerns A total of 33 minutes of critical care time was devoted to this patient today, required to treat and/or prevent further deterioration of critical care condition ( as above) . SURESH SIBLEY MD Sep 28, 2021 12:28
[2021-09-28 14:38] VITALS: BP 151/98
[2021-09-28 18:39] VITALS: BP 130/80
[2021-09-28 21:09] VITALS: BP 150/105
[2021-09-29 02:18] VITALS: BP 152/97
[2021-09-29] MEDS: RT-ALBUTEROL HFA 8.5 GM INHALER IH SCH ×6 (02:18→22:37)
[2021-09-29 05:05] LABS: BASOPHILS % (AUTO) 0 % (0-10); EOSINOPHILS # (AUTO) 0.2 10^3/uL (0.0-0.3); EOSINOPHILS % (AUTO) 2 % (0-10); HEMATOCRIT 43 % (40-54); HEMOGLOBIN 14.8 g/dL (13.3-17.7); LYMPHOCYTES % (AUTO) 8 % (12-44); MEAN CORPUSCULAR HEMOGLOBIN 33 pg (25-34); MEAN CORPUSCULAR HGB CONC 35 g/dL (32-36); MEAN CORPUSCULAR VOLUME 94 fL (80-99); MEAN PLATELET VOLUME 9.4 fL (9.0-12.2); MONOCYTES # (AUTO) 0.4 10^3/uL (0.0-1.0); MONOCYTES % (AUTO) 3 % (0-12); NEUTROPHILS # (AUTO) 11.2 10^3/uL (1.8-7.8); NEUTROPHILS % (AUTO) 86 % (42-75); PLATELET COUNT 247 10^3/uL (130-400); WHITE BLOOD COUNT 13.1 10^3/uL (4.3-11.0)
[2021-09-29 05:24] LABS: ALBUMIN 2.5 GM/DL (3.2-4.5); POTASSIUM 3.9 MMOL/L (3.6-5.0)
[2021-09-29 05:26] LABS: TOTAL PROTEIN 5.6 GM/DL (6.4-8.2)
[2021-09-29 05:28] LABS: BILIRUBIN,TOTAL 0.9 MG/DL (0.1-1.0)
[2021-09-29 05:29] LABS: PHOSPHORUS 4.5 MG/DL (2.3-4.7)
[2021-09-29 05:30] LABS: CREATININE SERUM 0.91 MG/DL (0.60-1.30)
[2021-09-29] MEDS: MAGNESIUM 1 GM/100 ML IVPB 100 ML IV SCH (06:26)
[2021-09-29] MEDS: inSUlin ASPART (NovoLOG) 1 UNIT/0.01 ML (CHARGE PER UNIT) SC SCH ×4 (06:26→21:12)
[2021-09-29] MEDS: KCL 20 MEQ TAB (K-DUR) PO SCH (06:26)
[2021-09-29] MEDS: POTASSIUM CL 10MEQ/50ML IVPB 50 ML IV SCH (06:26)
[2021-09-29 06:29] LABS: ABG BASE EXCESS 0.4 MMOL/L (-2.5-2.5); ABG OXYGEN SATURATION 93 % (94-100); ABG PCO2 26 MMHG (35-45); ABG PH 7.55 (7.37-7.43); ABG PO2 64 MMHG (79-93); ABG TCO2 23.7 MMOL/L (21.0-31.0)
[2021-09-29 06:33] LABS: ALLENS TEST YES-POS; INSPIRED O2 85%; PATIENT TEMP 36.3; VENTILATOR NO
[2021-09-29 06:44] VITALS: BP 148/87
--- NOTE | 2021-09-29 07:00 | Progress Note - Hospitalist ---
Subjective HPI/CC On Admission Date Seen by Provider: Sep 29, 2021 Time Seen by Provider: 11:30 CC: Respiratory failure HPI: This is a 55yoWM clinic Pt of [facility] who presents with Covid-19 acute hypoxic respiratory failure. He is currently on BiPAP at 70%, having real difficulty with compliance with change of positions and lying on his side. Patient denies any pain. Check meds and labs. Talked to RN. Subjective/Events-last exam Patient about the same BiPAP dependent Checked meds labs No pain is reported Tolerating everything well Review of Systems General: Fatigue, Malaise Pulmonary: Dyspnea Objective Exam Vital Signs Vital Signs Date Time Temp Pulse Resp B/P (MAP) Pulse Ox O2 Delivery O2 Flow Rate FiO2 09/30/21 02:48 75 21 92 80.00 09/30/21 01:00 118/83 NIV Bilevel 09/30/21 00:00 36.3 09/30/21 00:00 85 Capillary Refill : Less Than 3 Seconds General Appearance: No Apparent Distress, WD/WN, Chronically ill Respiratory: Lungs Clear, Normal Breath Sounds, Decreased Breath Sounds Cardiovascular: Regular Rate, Rhythm Neurologic/Psychiatric: Alert, Oriented x3, No Motor/Sensory Deficits, Normal Mood/Affect Results/Procedures Lab Patient resulted labs reviewed. Assessment/Plan Assessment and Plan Assess & Plan/Chief Complaint Assessment: Acute hypoxic respiratory failure COVID-19 pneumonia Smoker Hypertension Plan: COVID-19 protocol BiPAP Vapotherm High risk for intubation 09/26/2021: Actemra infusion High risk for intubation 09/27/2021: Actemra BiPAP 09/28/2021: BiPAP dependent 09/29/2021: BiPAP dependent Monitor closely Critical Care Critically Ill Patient Diagnosis/Problems Diagnosis/Problems (1) MONSERRAT CHAUDHRY DO Sep 29, 2021 07:00
[2021-09-29] MEDS ORDERED: CEFEPIME INJECTION 2,000 MG in NS (IVPB) 50 ML IV SCH (09:00)
[2021-09-29] MEDS: ENOXAPARIN 100 MG/1 ML (LOVENOX) SYR SC SCH ×2 (09:08→21:11)
[2021-09-29] MEDS: LACTULOSE SYRUP 10GM/15ML (ENULOSE) 30ML UDC PO SCH ×3 (09:09→21:12)
[2021-09-29] MEDS: ACYCLOVIR 400 MG TABLET (ZOVIRAX) PO SCH ×2 (09:09→21:11)
[2021-09-29] MEDS: MULTIVIT W/MINERALS TAB (THERAGRAN M) PO SCH (09:09)
[2021-09-29] MEDS: cefTRIAXone 2,000 MG/NS 50 ML IVPB IV SCH ×4 (09:09→21:11)
[2021-09-29] MEDS: polyethylene glycoL POWDER 17 GM (MIRALAX) PACK PO SCH ×3 (09:09→21:12)
[2021-09-29] MEDS: LOSARTAN 50 MG (COZAAR) TAB PO SCH (09:10)
[2021-09-29] MEDS: SENNA W/DOCUSATE (SENOKOT S) TABLET PO SCH ×2 (09:10→21:12)
[2021-09-29] MEDS: ATENOLOL 25 MG (TENORMIN) TAB PO SCH (09:11)
[2021-09-29 10:28] VITALS: BP 134/94
[2021-09-29 14:51] VITALS: BP 146/87
--- NOTE | 2021-09-29 17:07 | Tele-ICU Progress Note ---
Subjective Date Seen by a Provider: Sep 29, 2021 Time Seen by a Provider: 13:35 Sepsis Event Evaluation Height, Weight, BMI Height: '" Weight: lbs. oz. kg; 32.28 BMI Method: Exam Exam Patient acknowledged, consented, and participated in this virtual visit which was conducted using real time audio/video Vital Signs Date Time Temp Pulse Resp B/P (MAP) Pulse Ox O2 Delivery O2 Flow Rate FiO2 09/29/21 16:00 72 22 127/66 92 NIV Bilevel 80.00 09/29/21 15:00 76 21 137/85 93 NIV Bilevel 80.00 09/29/21 14:51 77 20 92 80.00 09/29/21 14:00 74 20 146/87 94 NIV Bilevel 80.00 09/29/21 13:00 75 19 143/87 93 NIV Bilevel 80.00 09/29/21 12:57 70 09/29/21 12:37 36.5 09/29/21 12:00 92 NIV Bilevel 85 09/29/21 12:00 68 24 135/96 92 NIV Bilevel 80.00 09/29/21 11:00 62 20 151/95 91 NIV Bilevel 80.00 09/29/21 10:34 NIV Bilevel 80.00 09/29/21 10:28 63 20 94 80.00 09/29/21 10:00 64 22 134/94 91 NIV Bilevel 85.00 09/29/21 09:00 72 20 93 NIV Bilevel 85.00 09/29/21 08:00 92 NIV Bilevel 85 09/29/21 08:00 63 20 151/81 91 NIV Bilevel 85.00 09/29/21 07:41 36.2 09/29/21 07:00 65 09/29/21 07:00 63 18 139/98 93 NIV Bilevel 85.00 09/29/21 06:51 NIV Bilevel 85 09/29/21 06:44 66 19 92 85.00 09/29/21 06:00 81 21 114/54 98 NIV Bilevel 85.00 09/29/21 05:00 88 15 113/62 95 NIV Bilevel 85.00 09/29/21 04:00 91 NIV Bilevel 85 09/29/21 04:00 68 22 143/98 93 NIV Bilevel 85.00 09/29/21 04:00 36.3 09/29/21 03:00 62 22 148/94 93 NIV Bilevel 85.00 09/29/21 02:18 63 16 94 85.00 09/29/21 02:00 71 18 137/87 91 NIV Bilevel 85.00 09/29/21 01:00 61 23 148/97 91 NIV Bilevel 85.00 09/29/21 01:00 63 09/29/21 00:00 69 12 135/98 93 NIV Bilevel 85.00 09/29/21 00:00 36.5 09/28/21 23:59 92 NIV Bilevel 85 09/28/21 23:00 65 22 192/58 91 NIV Bilevel 85.00 09/28/21 22:00 70 20 165/83 94 NIV Bilevel 85.00 09/28/21 21:09 72 18 92 85.00 09/28/21 21:09 72 14 150/105 97 NIV Bilevel 85.00 09/28/21 20:00 70 22 157/99 92 NIV Bilevel 85.00 09/28/21 20:00 91 NIV Bilevel 85 09/28/21 19:44 79 141/119 93 NIV Bilevel 85.00 09/28/21 19:44 36.3 68 140/80 93 NIV Bilevel 85.00 09/28/21 19:00 70 09/28/21 18:39 68 20 91 85.00 09/28/21 18:00 71 21 129/85 90 NIV Bilevel 85.00 09/28/21 17:14 36.0 70 24 122/80 89 NIV Bilevel 85.00 I & O 09/29/21 06:59 Intake Total 1650 ml Output Total 2825 ml Balance -1175 ml Height & Weight Height: '" Weight: lbs. oz. kg; 32.28 BMI Method: General Appearance: No Apparent Distress, WD/WN, Anxious, Chronically ill HEENT: PERRL/EOMI, Normal ENT Inspection, Pharynx Normal, Moist Mucous Membranes Neck: Full Range of Motion, Normal Inspection, Non Tender Respiratory: Lungs Clear, Normal Breath Sounds Cardiovascular: Regular Rate, Rhythm Capillary Refill: Less Than 3 Seconds Gastrointestinal: normal bowel sounds, non tender, soft Extremity: Normal Capillary Refill, Normal Inspection, Normal Range of Motion, Non Tender, No Calf Tenderness, No Pedal Edema Neurologic/Psychiatric: Alert, Oriented x3 Skin: Normal Color, Warm/Dry Lymphatic: No Adenopathy Results Lab Laboratory Tests 09/28/21 05:08 09/29/21 04:47 Assessment/Plan Assessment/Plan (Tele-ICU Physician , Progress Note ) Available chart/ vitals / labs / Images reviewed Video assessment done using teleICU camera, rest of exam as per RN Discussed with RN , EXAM PER RN Events overnight : Afebrile FiO2 - I/O = even Drips: Pressors: , hemodynamically stable Consultants: Hospital course: 09/24- COVID 09/27 - BIPAP 65% 09/28 - Bipap 85 % , try BUMEX 1 mg 09/29 - still on 80% A/P ARF/ COVID ( CTA neg for pe 09/24 - - Bipap 85 % - prone COVID PNA - steroids - lovenox full dose - probably can be changed to proph dose Suspected bact PNA- cont abx Lines : periph (Central Line Necessity Reviewed) Nur: void OG: Nutrition: po Analgesia: Anxiety/ delirium VTE Prophylaxis: lamont 70 bid Stress Ulcer Prophylaxis: Glycemic Control: Plans in collaboration with bedside consultants and IM MDs. Discussed with RN to reach out if any questions or concerns A total of 33 minutes of critical care time was devoted to this patient today, required to treat and/or prevent further deterioration of critical care condition ( as above) . SURESH SIBLEY MD Sep 29, 2021 17:07
[2021-09-29 18:57] VITALS: BP 150/88
[2021-09-29 22:37] VITALS: BP 130/93
[2021-09-30 02:48] VITALS: BP 126/82
[2021-09-30] MEDS: RT-ALBUTEROL HFA 8.5 GM INHALER IH SCH ×6 (02:48→22:57)
[2021-09-30 05:53] LABS: BASOPHILS % (AUTO) 0 % (0-10); EOSINOPHILS # (AUTO) 0.4 10^3/uL (0.0-0.3); EOSINOPHILS % (AUTO) 2 % (0-10); HEMATOCRIT 44 % (40-54); HEMOGLOBIN 15.3 g/dL (13.3-17.7); LYMPHOCYTES # (AUTO) 1.2 10^3/uL (1.0-4.0); LYMPHOCYTES % (AUTO) 7 % (12-44); MEAN CORPUSCULAR HEMOGLOBIN 33 pg (25-34); MEAN CORPUSCULAR HGB CONC 35 g/dL (32-36); MEAN CORPUSCULAR VOLUME 95 fL (80-99); MEAN PLATELET VOLUME 9.6 fL (9.0-12.2); MONOCYTES # (AUTO) 0.6 10^3/uL (0.0-1.0); MONOCYTES % (AUTO) 4 % (0-12); NEUTROPHILS # (AUTO) 13.4 10^3/uL (1.8-7.8); NEUTROPHILS % (AUTO) 84 % (42-75); PLATELET COUNT 277 10^3/uL (130-400); WHITE BLOOD COUNT 15.8 10^3/uL (4.3-11.0)
[2021-09-30 06:10] LABS: ALBUMIN 2.6 GM/DL (3.2-4.5)
[2021-09-30 06:11] LABS: CALCIUM 7.9 MG/DL (8.5-10.1)
[2021-09-30 06:12] LABS: TOTAL PROTEIN 5.8 GM/DL (6.4-8.2)
[2021-09-30 06:16] LABS: CREATININE SERUM 0.86 MG/DL (0.60-1.30)
[2021-09-30 06:19] LABS: MAGNESIUM 2.1 MG/DL (1.6-2.4)
[2021-09-30 06:37] LABS: EOSINOPHILS % (MANUAL) 2 %; LYMPHOCYTES % (MANUAL) 4 %; MONOCYTES % (MANUAL) 3 %; NEUTROPHILS % (MANUAL) 91 %; RBC MORPH NORMAL
[2021-09-30 07:24] VITALS: BP 149/102
[2021-09-30] MEDS ORDERED: ONDANSETRON 4 MG/2 ML (SDV) Z0FRAN IV PRN (08:30)
[2021-09-30] MEDS ORDERED: ONDANSETRON 4 MG (ZOFRAN) ORAL DISSOLVE TAB PO PRN (08:30)
[2021-09-30] MEDS ORDERED: polyethylene glycoL POWDER 17 GM (MIRALAX) PACK PO PRN (08:30)
[2021-09-30] MEDS ORDERED: diphenhydrAMINE 50 MG/ML INJ (BENADRYL) IVP PRN (08:30)
[2021-09-30] MEDS ORDERED: morphine INJ 4 MG/ML 1 ML (VIAL/SYRINGE) IV PRN (08:30)
[2021-09-30] MEDS ORDERED: ANTACID SUSP 30 ML UDC (MYLANTA) PO PRN (08:30)
[2021-09-30] MEDS ORDERED: BISACODYL 10 MG SUPP (DULCOLAX) PR PRN (08:30)
[2021-09-30] MEDS: LOSARTAN 50 MG (COZAAR) TAB PO SCH (09:04)
[2021-09-30] MEDS: ACYCLOVIR 400 MG TABLET (ZOVIRAX) PO SCH ×2 (09:04→21:41)
[2021-09-30] MEDS: cefTRIAXone 2,000 MG/NS 50 ML IVPB IV SCH ×4 (09:04→21:41)
[2021-09-30] MEDS: MULTIVIT W/MINERALS TAB (THERAGRAN M) PO SCH (09:04)
[2021-09-30] MEDS: SENNA W/DOCUSATE (SENOKOT S) TABLET PO SCH ×2 (09:04→21:42)
[2021-09-30] MEDS: ATENOLOL 25 MG (TENORMIN) TAB PO SCH (09:05)
[2021-09-30] MEDS: LACTULOSE SYRUP 10GM/15ML (ENULOSE) 30ML UDC PO SCH ×2 (09:05→21:41)
[2021-09-30] MEDS: polyethylene glycoL POWDER 17 GM (MIRALAX) PACK PO SCH ×2 (09:05→21:41)
[2021-09-30] MEDS: ENOXAPARIN 100 MG/1 ML (LOVENOX) SYR SC SCH ×2 (09:11→21:41)
--- NOTE | 2021-09-30 10:03 | Tele-ICU Progress Note ---
Subjective Date Seen by a Provider: Sep 30, 2021 Time Seen by a Provider: 07:30 Subjective/Events-last exam This virtual visit was conducted using real time audio/video. Thank you for asking us to see this patient for respiratory insufficiency due to Covid pna, possible CHF. Recent events: None PE: Resting comfortably, obese. VSS. O2 sat 93% on BiPAP 18/12, 65%. HEENT: No obvious masses, adenopathy or JVD. Chest: clear to auscultation. CV: RRR S1 S2 No murmur or added sounds. Abd: Non-tender. Bowel sounds Y. : Unremarkable. Nur N. [employer]/psychiatric: Grossly intact. No obvious focal findings. Extremities: No edema. Capillary refill < 3 seconds. Skin: unremarkable. Results: Elevated WCC 15.8 D-dimer 3.94. Decreased alb 2.6. B.55/26/64. CXR: B infilts. Available chart/ vitals / labs / images reviewed. Video assessment done using teleICU camera, rest of exam as per RN. A/P: Respiratory insufficiency: Continue present management with BiPAP, albuterol. Wean as katelynn Monitor for increasing oxygenation needs and/or need for intubation. Critical Care: critically ill patient. Cont. Cefipime, atenolol, SSI, Dex., Acyclovir, Stephanie Q12H. Discussed with MURPHY Payan. Asked RN to reach out to eICU if any questions or concerns later. Time spent with patient/coordination of care with other health professionals (mins):28 Sepsis Event Evaluation Height, Weight, BMI Height: '" Weight: lbs. oz. kg; 32.28 BMI Method: Exam Exam Patient acknowledged, consented, and participated in this virtual visit which was conducted using real time audio/video Vital Signs Date Time Temp Pulse Resp B/P (MAP) Pulse Ox O2 Delivery O2 Flow Rate FiO2 09/30/21 09:00 94 NIV Bilevel 65.00 09/30/21 09:00 92 NIV Bilevel 65 09/30/21 07:55 36.2 09/30/21 07:24 71 20 93 80.00 09/30/21 06:00 68 17 149/87 96 NIV Bilevel 80.00 09/30/21 05:00 74 22 141/102 92 NIV Bilevel 80.00 09/30/21 04:00 69 21 133/91 92 NIV Bilevel 80.00 09/30/21 04:00 36.7 09/30/21 04:00 92 NIV Bilevel 85 09/30/21 03:00 71 18 140/97 91 NIV Bilevel 80.00 09/30/21 02:48 75 21 92 80.00 09/30/21 02:00 67 20 126/82 93 NIV Bilevel 80.00 09/30/21 01:00 68 18 118/83 91 NIV Bilevel 80.00 09/30/21 01:00 68 09/30/21 00:00 36.3 09/30/21 00:00 71 21 129/88 90 NIV Bilevel 80.00 09/30/21 00:00 92 NIV Bilevel 85 09/29/21 23:00 72 21 141/100 92 NIV Bilevel 80.00 09/29/21 22:37 73 19 92 80.00 09/29/21 22:00 73 22 130/93 90 NIV Bilevel 80.00 09/29/21 21:00 71 21 138/95 94 NIV Bilevel 80.00 09/29/21 20:00 92 NIV Bilevel 85 09/29/21 20:00 36.8 09/29/21 20:00 77 22 151/94 91 NIV Bilevel 80.00 09/29/21 19:00 80 09/29/21 19:00 80 24 150/87 93 NIV Bilevel 80.00 09/29/21 18:57 76 20 93 80.00 09/29/21 18:00 76 20 150/88 91 NIV Bilevel 80.00 09/29/21 17:00 79 26 139/91 92 NIV Bilevel 80.00 09/29/21 16:00 72 22 127/66 92 NIV Bilevel 80.00 09/29/21 16:00 92 NIV Bilevel 85 09/29/21 16:00 36.4 09/29/21 15:00 76 21 137/85 93 NIV Bilevel 80.00 09/29/21 14:51 77 20 92 80.00 09/29/21 14:00 74 20 146/87 94 NIV Bilevel 80.00 09/29/21 13:00 75 19 143/87 93 NIV Bilevel 80.00 09/29/21 12:57 70 09/29/21 12:37 36.5 09/29/21 12:00 92 NIV Bilevel 85 09/29/21 12:00 68 24 135/96 92 NIV Bilevel 80.00 09/29/21 11:00 62 20 151/95 91 NIV Bilevel 80.00 09/29/21 10:34 NIV Bilevel 80.00 09/29/21 10:28 63 20 94 80.00 09/29/21 10:00 64 22 134/94 91 NIV Bilevel 85.00 I & O 09/30/21 07:00 Intake Total 1420 ml Output Total 1955 ml Balance -535 ml Height & Weight Height: '" Weight: lbs. oz. kg; 32.28 BMI Method: General Appearance: No Apparent Distress (See free text), WD/WN, Chronically ill HEENT: PERRL/EOMI, Normal ENT Inspection, Pharynx Normal, Moist Mucous Membranes Neck: Full Range of Motion, Normal Inspection, Non Tender Respiratory: Lungs Clear, Normal Breath Sounds, Decreased Breath Sounds Cardiovascular: Regular Rate, Rhythm Capillary Refill: Less Than 3 Seconds Gastrointestinal: normal bowel sounds, non tender, soft Extremity: Normal Capillary Refill, Normal Inspection, Normal Range of Motion, Non Tender, No Calf Tenderness, No Pedal Edema Neurologic/Psychiatric: Alert, Oriented x3, No Motor/Sensory Deficits, Normal Mood/Affect Skin: Normal Color, Warm/Dry Lymphatic: No Adenopathy Results Lab Laboratory Tests 09/29/21 04:47 09/30/21 05:18 Assessment/Plan Assessment/Plan See free text. Critical Care: Critically Ill Patient ARLEY GREY MD Sep 30, 2021 10:03
--- NOTE | 2021-09-30 10:34 | Progress Note - Hospitalist ---
Subjective HPI/CC On Admission Date Seen by Provider: Sep 30, 2021 Time Seen by Provider: 11:00 CC: Respiratory failure HPI: This is a 55yoWM clinic Pt of [facility] who presents with Covid-19 acute hypoxic respiratory failure. He is currently on BiPAP at 70%, having real difficulty with compliance with change of positions and lying on his side. Patient denies any pain. Check meds and labs. Talked to RN. Subjective/Events-last exam Pt doing really well BiPAP at 65% No BM yet Will start him on vapotherm to be able to eat a little bit of something Overall he seems to be improving Review of Systems Pulmonary: Dyspnea, Cough Objective Exam Vital Signs Vital Signs Date Time Temp Pulse Resp B/P (MAP) Pulse Ox O2 Delivery O2 Flow Rate FiO2 10/01/21 02:14 75 20 93 55.00 10/01/21 00:45 36.6 10/01/21 00:00 NIV Bilevel 65 10/01/21 00:00 134/80 Capillary Refill : Less Than 3 Seconds General Appearance: No Apparent Distress, WD/WN, Anxious, Chronically ill, Obese Respiratory: Lungs Clear, Normal Breath Sounds Cardiovascular: Regular Rate, Rhythm Neurologic/Psychiatric: Alert, Oriented x3, No Motor/Sensory Deficits, Normal Mood/Affect Results/Procedures Lab Laboratory Tests 09/30/21 05:18 Patient resulted labs reviewed. Assessment/Plan Assessment and Plan Assess & Plan/Chief Complaint Assessment: Acute hypoxic respiratory failure COVID-19 pneumonia Smoker Hypertension Plan: COVID-19 protocol BiPAP Vapotherm High risk for intubation 09/26/2021: Actemra infusion High risk for intubation 09/27/2021: Actemra BiPAP 09/28/2021: BiPAP dependent 09/29/2021: BiPAP dependent Monitor closely 09/30/2021: BiPAP dependent Still high risk for intubation Critical Care Critically Ill Patient Diagnosis/Problems Diagnosis/Problems (1) MONSERRAT CHAUDHRY DO Sep 30, 2021 10:34
[2021-09-30 10:51] VITALS: BP 140/99
[2021-09-30] MEDS: inSUlin ASPART (NovoLOG) 1 UNIT/0.01 ML (CHARGE PER UNIT) SC SCH ×3 (11:58→21:44)
[2021-09-30 22:57] VITALS: BP 120/82
[2021-09-30 23:22] VITALS: BP 135/76
[2021-10-01 02:14] VITALS: BP 144/82
[2021-10-01] MEDS: RT-ALBUTEROL HFA 8.5 GM INHALER IH SCH ×6 (02:14→21:28)
[2021-10-01 05:24] LABS: BASOPHILS # (AUTO) 0.1 10^3/uL (0.0-0.1); BASOPHILS % (AUTO) 0 % (0-10); EOSINOPHILS # (AUTO) 0.5 10^3/uL (0.0-0.3); EOSINOPHILS % (AUTO) 3 % (0-10); HEMATOCRIT 45 % (40-54); HEMOGLOBIN 15.6 g/dL (13.3-17.7); LYMPHOCYTES # (AUTO) 1.5 10^3/uL (1.0-4.0); LYMPHOCYTES % (AUTO) 8 % (12-44); MEAN CORPUSCULAR HEMOGLOBIN 33 pg (25-34); MEAN CORPUSCULAR HGB CONC 35 g/dL (32-36); MEAN CORPUSCULAR VOLUME 95 fL (80-99); MEAN PLATELET VOLUME 9.5 fL (9.0-12.2); MONOCYTES # (AUTO) 0.8 10^3/uL (0.0-1.0); MONOCYTES % (AUTO) 4 % (0-12); NEUTROPHILS # (AUTO) 15.1 10^3/uL (1.8-7.8); NEUTROPHILS % (AUTO) 82 % (42-75); PLATELET COUNT 281 10^3/uL (130-400); WHITE BLOOD COUNT 18.3 10^3/uL (4.3-11.0)
[2021-10-01 05:43] LABS: ALBUMIN 2.8 GM/DL (3.2-4.5); POTASSIUM 4.1 MMOL/L (3.6-5.0)
[2021-10-01 05:45] LABS: CALCIUM 8.1 MG/DL (8.5-10.1)
[2021-10-01 05:46] LABS: TOTAL PROTEIN 6.1 GM/DL (6.4-8.2)
[2021-10-01 05:48] LABS: BILIRUBIN,TOTAL 0.8 MG/DL (0.1-1.0)
[2021-10-01 05:49] LABS: PHOSPHORUS 3.9 MG/DL (2.3-4.7)
[2021-10-01 05:50] LABS: CREATININE SERUM 0.93 MG/DL (0.60-1.30)
[2021-10-01 05:53] LABS: MAGNESIUM 2.2 MG/DL (1.6-2.4)
--- NOTE | 2021-10-01 05:58 | Progress Note - Hospitalist ---
Subjective HPI/CC On Admission Date Seen by Provider: Oct 01, 2021 Time Seen by Provider: 09:00 CC: Respiratory failure HPI: This is a 55yoWM clinic Pt of [facility] who presents with Covid-19 acute hypoxic respiratory failure. He is currently on BiPAP at 70%, having real difficulty with compliance with change of positions and lying on his side. Patient denies any pain. Check meds and labs. Talked to RN. Subjective/Events-last exam Pt doing a lot better Maxed on Vapotherm currently Uses BiPAP at night Overall much improved status Eating and drinking No bowels moving yet Review of Systems General: Fatigue, Malaise Pulmonary: Dyspnea, Cough Objective Exam Vital Signs Vital Signs Date Time Temp Pulse Resp B/P (MAP) Pulse Ox O2 Delivery O2 Flow Rate FiO2 10/02/21 05:00 79 19 127/87 91 Vapotherm 40.00 100.00 10/02/21 01:54 100 10/02/21 00:00 36.6 Capillary Refill : Less Than 3 Seconds General Appearance: No Apparent Distress, WD/WN, Chronically ill Respiratory: Lungs Clear, Normal Breath Sounds, Decreased Breath Sounds Cardiovascular: Regular Rate, Rhythm Neurologic/Psychiatric: Alert, Oriented x3, No Motor/Sensory Deficits, Normal Mood/Affect Results/Procedures Lab Patient resulted labs reviewed. Assessment/Plan Assessment and Plan Assess & Plan/Chief Complaint Assessment: Acute hypoxic respiratory failure COVID-19 pneumonia Smoker Hypertension Plan: COVID-19 protocol BiPAP Vapotherm High risk for intubation 09/26/2021: Actemra infusion High risk for intubation 09/27/2021: Actemra BiPAP 09/28/2021: BiPAP dependent 09/29/2021: BiPAP dependent Monitor closely 09/30/2021: BiPAP dependent Still high risk for intubation 10/01/2021: Supportive care Vapotherm transition Critical Care Critically Ill Patient Diagnosis/Problems Diagnosis/Problems (1) MONSERRAT CHAUDHRY DO Oct 01, 2021 05:58
[2021-10-01] MEDS: inSUlin ASPART (NovoLOG) 1 UNIT/0.01 ML (CHARGE PER UNIT) SC SCH ×4 (06:02→20:21)
[2021-10-01 07:41] VITALS: BP 152/92
[2021-10-01] MEDS: ATENOLOL 25 MG (TENORMIN) TAB PO SCH (09:17)
[2021-10-01] MEDS: MULTIVIT W/MINERALS TAB (THERAGRAN M) PO SCH (09:17)
[2021-10-01] MEDS: ENOXAPARIN 100 MG/1 ML (LOVENOX) SYR SC SCH ×2 (09:17→20:21)
[2021-10-01] MEDS: LOSARTAN 50 MG (COZAAR) TAB PO SCH (09:17)
[2021-10-01] MEDS: ACYCLOVIR 400 MG TABLET (ZOVIRAX) PO SCH ×2 (09:17→20:20)
[2021-10-01] MEDS: LACTULOSE SYRUP 10GM/15ML (ENULOSE) 30ML UDC PO SCH ×2 (09:18→20:21)
[2021-10-01] MEDS: SENNA W/DOCUSATE (SENOKOT S) TABLET PO SCH ×2 (09:18→20:21)
[2021-10-01] MEDS: cefTRIAXone 2,000 MG/NS 50 ML IVPB IV SCH ×2 (09:18)
[2021-10-01] MEDS: polyethylene glycoL POWDER 17 GM (MIRALAX) PACK PO SCH ×2 (09:18→20:21)
[2021-10-01] MEDS: POTASSIUM CL 10MEQ/50ML IVPB 50 ML IV SCH (09:19)
[2021-10-01] MEDS: KCL 20 MEQ TAB (K-DUR) PO SCH (09:19)
[2021-10-01] MEDS: MAGNESIUM 1 GM/100 ML IVPB 100 ML IV SCH (09:19)
[2021-10-01 10:11] LABS: ABG BASE EXCESS -3.1 MMOL/L (-2.5-2.5); ABG OXYGEN SATURATION 93 % (94-100); ABG PCO2 26 MMHG (35-45); ABG PH 7.49 (7.37-7.43); ABG PO2 61 MMHG (79-93); ABG TCO2 20.8 MMOL/L (21.0-31.0)
[2021-10-01 10:12] LABS: ALLENS TEST ART LINE; INSPIRED O2 60%; VENTILATOR NO
--- NOTE | 2021-10-01 11:59 | Tele-ICU Progress Note ---
Subjective Date Seen by a Provider: Oct 01, 2021 Time Seen by a Provider: 10:08 Sepsis Event Evaluation Height, Weight, BMI Height: '" Weight: lbs. oz. kg; 32.28 BMI Method: Exam Exam Patient acknowledged, consented, and participated in this virtual visit which was conducted using real time audio/video Vital Signs Date Time Temp Pulse Resp B/P (MAP) Pulse Ox O2 Delivery O2 Flow Rate FiO2 10/01/21 11:55 35.9 10/01/21 11:30 94 Vapotherm 30.00 100 10/01/21 09:00 Vapotherm 40.00 100.00 10/01/21 07:45 36.0 10/01/21 07:41 70 20 91 60.00 10/01/21 07:00 71 10/01/21 06:00 67 15 160/102 92 NIV Bilevel 65.00 10/01/21 05:00 74 20 149/104 92 NIV Bilevel 65.00 10/01/21 04:00 90 NIV Bilevel 65 10/01/21 04:00 71 20 123/89 91 NIV Bilevel 65.00 10/01/21 03:00 75 20 135/93 90 NIV Bilevel 65.00 10/01/21 02:14 75 20 93 55.00 10/01/21 02:00 71 20 146/82 82 NIV Bilevel 65.00 10/01/21 01:00 78 19 157/86 91 NIV Bilevel 65.00 10/01/21 00:45 36.6 10/01/21 00:15 81 10/01/21 00:00 90 NIV Bilevel 65 10/01/21 00:00 84 23 134/80 92 NIV Bilevel 09/30/21 23:22 36.2 71 94 100 09/30/21 23:00 81 16 145/92 92 NIV Bilevel 09/30/21 22:57 79 15 94 55.00 09/30/21 22:00 81 17 128/82 89 Vapotherm 40.00 100.00 09/30/21 21:00 80 20 135/92 88 Vapotherm 40.00 100.00 09/30/21 20:00 85 17 146/91 91 Vapotherm 40.00 100.00 09/30/21 20:00 36.1 09/30/21 20:00 90 Vapotherm 40.00 100 09/30/21 19:00 80 10 78/92 91 Vapotherm 40.00 100.00 09/30/21 19:00 82 09/30/21 19:00 80 22 124/78 91 Vapotherm 40.00 100.00 09/30/21 18:45 90 Vapotherm 40.00 100 09/30/21 18:00 76 10 135/92 91 Vapotherm 40.00 100.00 09/30/21 17:00 79 14 129/87 91 Vapotherm 40.00 100.00 09/30/21 16:35 90 Vapotherm 40.00 100.00 09/30/21 16:35 90 Vapotherm 40.00 100 09/30/21 16:08 34.9 09/30/21 16:00 87 20 122/81 88 Vapotherm 30.00 100.00 09/30/21 15:00 71 17 127/76 92 Vapotherm 30.00 100.00 09/30/21 14:55 91 Vapotherm 30.00 100 09/30/21 14:52 Vapotherm 30.00 100.00 09/30/21 14:01 Vapotherm 40.00 50.00 09/30/21 14:00 74 16 138/90 93 Vapotherm 40.00 60.00 09/30/21 13:00 66 14 142/94 93 Vapotherm 40.00 60.00 09/30/21 13:00 66 09/30/21 12:13 94 Vapotherm 40.00 60 09/30/21 12:12 Vapotherm 40.00 60.00 09/30/21 12:00 65 15 133/81 94 Vapotherm 40.00 70.00 I & O 10/01/21 07:00 Intake Total 2210 ml Output Total 1875 ml Balance 335 ml Height & Weight Height: '" Weight: lbs. oz. kg; 32.28 BMI Method: General Appearance: No Apparent Distress, WD/WN, Anxious, Chronically ill, Obese HEENT: PERRL/EOMI, Normal ENT Inspection, Pharynx Normal, Moist Mucous Membran es Neck: Full Range of Motion, Normal Inspection, Non Tender Respiratory: Lungs Clear, Normal Breath Sounds Cardiovascular: Regular Rate, Rhythm Capillary Refill: Less Than 3 Seconds Gastrointestinal: normal bowel sounds, non tender, soft Extremity: Normal Capillary Refill, Normal Inspection, Normal Range of Motion, Non Tender, No Calf Tenderness, No Pedal Edema Neurologic/Psychiatric: Alert, Oriented x3, No Motor/Sensory Deficits, Normal Mood/Affect Skin: Normal Color, Warm/Dry Lymphatic: No Adenopathy Results Lab Laboratory Tests 09/30/21 05:18 10/01/21 05:03 Assessment/Plan Assessment/Plan (Tele-ICU Physician , Progress Note ) Available chart/ vitals / labs / Images reviewed Video assessment done using teleICU camera, rest of exam as per RN Discussed with RN , EXAM PER RN Events overnight : bipap 65% Afebrile FiO2 - I/O = even Drips: Pressors: , hemodynamically stable Consultants: Hospital course: 09/24- COVID 09/27 - BIPAP 65% 09/28 - Bipap 85 % , try BUMEX 1 mg 09/29 - still on 80% - bipap 65% 40 L 100% A/P ARF/ COVID ( CTA neg for pe 09/24 - - Bipap 85 % , 40 L 100% - prone -repeat cxr - montor for VO COVID PNA - steroids - lovenox full dose Suspected bact PNA- cont abx Lines : periph (Central Line Necessity Reviewed) Nur: void OG: Nutrition: po Analgesia: Anxiety/ delirium VTE Prophylaxis: lamont 100 bid Stress Ulcer Prophylaxis: Glycemic Control: Plans in collaboration with bedside consultants and IM MDs. Discussed with RN to reach out if any questions or concerns A total of 33 minutes of critical care time was devoted to this patient today, required to treat and/or prevent further deterioration of critical care condition ( as above) . SURESH SIBLEY MD Oct 01, 2021 11:59
--- NOTE | 2021-10-01 15:25 | Diagnostic Imaging Report ---
INDICATION: Hypoxia and COVID-19 pneumonia. TIME OF EXAM: 3:16 p.m. COMPARISON: Correlation is made with prior chest from 09/28/2021. FINDINGS: Bilateral infiltrates persist but do appear to be slightly less consolidated, particularly left mid and upper lung baldwin when compared with three days earlier. No effusion or pneumothorax is seen. IMPRESSION: There has been some improved aeration of both lungs since three days earlier, but diffuse infiltrates do remain. Dictated by: Dictated on workstation # [id number]
--- NOTE | 2021-10-01 15:34 | Diagnostic Imaging Report ---
INDICATION: Abdominal distention. TIME OF EXAM: 03:18 p.m. COMPARISON: No prior studies are available for comparison. FINDINGS: A supine portable radiograph of the abdomen demonstrates the bowel gas pattern to be unremarkable. No definite free air is identified. No pathologic calcifications are seen. IMPRESSION: No acute abnormality is detected. Dictated by: Dictated on workstation # [id number]
[2021-10-02] MEDS: RT-ALBUTEROL HFA 8.5 GM INHALER IH SCH ×6 (01:54→21:45)
[2021-10-02 05:21] LABS: BASOPHILS # (AUTO) 0.1 10^3/uL (0.0-0.1); BASOPHILS % (AUTO) 0 % (0-10); EOSINOPHILS # (AUTO) 0.1 10^3/uL (0.0-0.3); EOSINOPHILS % (AUTO) 0 % (0-10); HEMATOCRIT 45 % (40-54); HEMOGLOBIN 15.6 g/dL (13.3-17.7); LYMPHOCYTES # (AUTO) 0.9 10^3/uL (1.0-4.0); LYMPHOCYTES % (AUTO) 4 % (12-44); MEAN CORPUSCULAR HEMOGLOBIN 33 pg (25-34); MEAN CORPUSCULAR HGB CONC 34 g/dL (32-36); MEAN CORPUSCULAR VOLUME 96 fL (80-99); MEAN PLATELET VOLUME 9.8 fL (9.0-12.2); MONOCYTES # (AUTO) 0.7 10^3/uL (0.0-1.0); MONOCYTES % (AUTO) 3 % (0-12); NEUTROPHILS # (AUTO) 18.5 10^3/uL (1.8-7.8); NEUTROPHILS % (AUTO) 88 % (42-75); PLATELET COUNT 283 10^3/uL (130-400)
[2021-10-02 05:34] LABS: POTASSIUM 4.3 MMOL/L (3.6-5.0)
[2021-10-02 05:35] LABS: CALCIUM 8.7 MG/DL (8.5-10.1)
[2021-10-02 05:37] LABS: TOTAL PROTEIN 6.3 GM/DL (6.4-8.2)
[2021-10-02 05:39] LABS: BILIRUBIN,TOTAL 0.6 MG/DL (0.1-1.0)
[2021-10-02 05:40] LABS: CREATININE SERUM 0.96 MG/DL (0.60-1.30); PHOSPHORUS 3.9 MG/DL (2.3-4.7)
[2021-10-02 05:43] LABS: MAGNESIUM 2.2 MG/DL (1.6-2.4)
--- NOTE | 2021-10-02 06:44 | Progress Note - Hospitalist ---
Subjective HPI/CC On Admission Date Seen by Provider: Oct 02, 2021 Time Seen by Provider: 10:00 CC: Respiratory failure HPI: This is a 55yoWM clinic Pt of [facility] who presents with Covid-19 acute hypoxic respiratory failure. He is currently on BiPAP at 70%, having real difficulty with compliance with change of positions and lying on his side. Patient denies any pain. Check meds and labs. Talked to RN. Subjective/Events-last exam Pt doing a lot better Vapotherm maintained Stay in ICU one more day likely Checked meds and labs Review of Systems General: Fatigue, Malaise Pulmonary: Dyspnea Objective Exam Vital Signs Vital Signs Date Time Temp Pulse Resp B/P (MAP) Pulse Ox O2 Delivery O2 Flow Rate FiO2 10/03/21 04:21 94 NIV Bilevel 60 10/03/21 04:12 36.6 10/03/21 02:56 73 20 60.00 10/03/21 00:00 124/74 Capillary Refill : Less Than 3 Seconds General Appearance: No Apparent Distress, WD/WN, Chronically ill Respiratory: Lungs Clear, Normal Breath Sounds Cardiovascular: Regular Rate, Rhythm Neurologic/Psychiatric: Alert, Oriented x3, No Motor/Sensory Deficits, Normal Mood/Affect Results/Procedures Lab Laboratory Tests 10/03/21 04:46 Patient resulted labs reviewed. Assessment/Plan Assessment and Plan Assess & Plan/Chief Complaint Assessment: Acute hypoxic respiratory failure COVID-19 pneumonia Smoker Hypertension Plan: COVID-19 protocol BiPAP Vapotherm High risk for intubation 09/26/2021: Actemra infusion High risk for intubation 09/27/2021: Actemra BiPAP 09/28/2021: BiPAP dependent 09/29/2021: BiPAP dependent Monitor closely 09/30/2021: BiPAP dependent Still high risk for intubation 10/01/2021: Supportive care Vapotherm transition 10/02/2021: Supportive care Transfer to fourth floor hopefully tomorrow Critical Care Critically Ill Patient Diagnosis/Problems Diagnosis/Problems (1) MONSERRAT CHAUDHRY DO Oct 02, 2021 06:44
[2021-10-02] MEDS: POTASSIUM CL 10MEQ/50ML IVPB 50 ML IV SCH (07:53)
[2021-10-02] MEDS: KCL 20 MEQ TAB (K-DUR) PO SCH (07:53)
[2021-10-02] MEDS: inSUlin ASPART (NovoLOG) 1 UNIT/0.01 ML (CHARGE PER UNIT) SC SCH ×4 (07:53→20:35)
[2021-10-02] MEDS: MAGNESIUM 1 GM/100 ML IVPB 100 ML IV SCH (07:53)
[2021-10-02] MEDS: LACTULOSE SYRUP 10GM/15ML (ENULOSE) 30ML UDC PO SCH ×2 (08:27→20:56)
[2021-10-02] MEDS: LOSARTAN 50 MG (COZAAR) TAB PO SCH (08:27)
[2021-10-02] MEDS: ENOXAPARIN 100 MG/1 ML (LOVENOX) SYR SC SCH ×2 (08:27→20:34)
[2021-10-02] MEDS: MULTIVIT W/MINERALS TAB (THERAGRAN M) PO SCH (08:27)
[2021-10-02] MEDS: ATENOLOL 25 MG (TENORMIN) TAB PO SCH (08:27)
[2021-10-02] MEDS: ACYCLOVIR 400 MG TABLET (ZOVIRAX) PO SCH ×2 (08:27→20:34)
[2021-10-02] MEDS: polyethylene glycoL POWDER 17 GM (MIRALAX) PACK PO SCH ×2 (08:28→20:56)
[2021-10-02] MEDS: SENNA W/DOCUSATE (SENOKOT S) TABLET PO SCH ×2 (08:28→20:56)
[2021-10-02 08:46] LABS: ABG OXYGEN SATURATION 89 % (94-100); ABG PCO2 27 MMHG (35-45); ABG PH 7.49 (7.37-7.43); ABG PO2 50 MMHG (79-93)
[2021-10-02 08:47] LABS: INSPIRED O2 40L/100%; PATIENT TEMP 35.8; VENTILATOR NO
--- NOTE | 2021-10-02 10:50 | Tele-ICU Progress Note ---
Subjective Date Seen by a Provider: Oct 02, 2021 Time Seen by a Provider: 09:46 Sepsis Event Evaluation Height, Weight, BMI Height: '" Weight: lbs. oz. kg; 32.28 BMI Method: Exam Exam Patient acknowledged, consented, and participated in this virtual visit which was conducted using real time audio/video Vital Signs Date Time Temp Pulse Resp B/P (MAP) Pulse Ox O2 Delivery O2 Flow Rate FiO2 10/02/21 10:38 30.00 90 10/02/21 10:37 93 Vapotherm 40.00 90 10/02/21 08:00 35.8 10/02/21 07:31 Vapotherm 40.00 90.00 10/02/21 07:26 40.00 90 10/02/21 07:24 97 Vapotherm 40.00 100 10/02/21 07:00 73 10/02/21 06:00 80 12 146/101 89 Vapotherm 40.00 100.00 10/02/21 05:00 79 19 127/87 91 Vapotherm 40.00 100.00 10/02/21 04:00 80 18 116/75 91 Vapotherm 40.00 100.00 10/02/21 04:00 90 Vapotherm 40.00 100 10/02/21 03:00 84 20 102/57 94 Vapotherm 40.00 100.00 10/02/21 02:00 102 14 114/77 87 Vapotherm 40.00 100.00 10/02/21 01:54 91 Vapotherm 40.00 100 10/02/21 01:00 88 10/02/21 01:00 88 15 116/83 90 Vapotherm 40.00 100.00 10/02/21 00:00 92 18 117/91 95 Vapotherm 40.00 100.00 10/02/21 00:00 90 Vapotherm 40.00 100 10/02/21 00:00 36.6 10/01/21 23:00 94 24 93/69 90 Vapotherm 40.00 100.00 10/01/21 22:47 36.6 10/01/21 22:00 95 18 144/93 93 Vapotherm 40.00 100.00 10/01/21 21:29 91 Vapotherm 40.00 100 10/01/21 21:00 84 17 146/105 92 Vapotherm 40.00 100.00 10/01/21 20:00 84 15 105/51 91 Vapotherm 40.00 100.00 10/01/21 20:00 90 Vapotherm 40.00 100 10/01/21 20:00 36.7 10/01/21 19:00 84 10/01/21 19:00 84 12 111/82 93 Vapotherm 40.00 100.00 10/01/21 18:58 95 Vapotherm 40.00 100 10/01/21 18:00 81 24 123/82 91 Vapotherm 40.00 100.00 10/01/21 17:00 79 17 103/83 90 Vapotherm 40.00 100.00 10/01/21 16:00 82 21 106/91 91 Vapotherm 40.00 100.00 10/01/21 15:50 36.4 10/01/21 15:14 90 Vapotherm 40.00 100 10/01/21 15:04 94 Vapotherm 40.00 100 10/01/21 15:00 81 23 110/89 89 Vapotherm 40.00 100.00 10/01/21 14:00 79 13 110/89 97 Vapotherm 40.00 100.00 10/01/21 13:00 83 10/01/21 13:00 74 12 105/71 94 Vapotherm 40.00 100.00 10/01/21 12:00 90 Vapotherm 40.00 100 10/01/21 12:00 70 19 126/73 93 Vapotherm 40.00 100.00 10/01/21 11:55 35.9 10/01/21 11:30 94 Vapotherm 30.00 100 10/01/21 11:00 74 13 144/101 95 Vapotherm 40.00 100.00 I & O 10/02/21 07:00 Intake Total 1955 ml Output Total 3075 ml Balance -1120 ml Height & Weight Height: '" Weight: lbs. oz. kg; 32.28 BMI Method: General Appearance: No Apparent Distress, WD/WN, Chronically ill HEENT: PERRL/EOMI, Normal ENT Inspection, Pharynx Normal, Moist Mucous Membranes Neck: Full Range of Motion, Normal Inspection, Non Tender Respiratory: Lungs Clear, Normal Breath Sounds, Decreased Breath Sounds Cardiovascular: Regular Rate, Rhythm Capillary Refill: Less Than 3 Seconds Gastrointestinal: normal bowel sounds, non tender, soft Extremity: Normal Capillary Refill, Normal Inspection, Normal Range of Motion, Non Tender, No Calf Tenderness, No Pedal Edema Neurologic/Psychiatric: Alert, Oriented x3, No Motor/Sensory Deficits, Normal Mood/Affect Skin: Normal Color, Warm/Dry Lymphatic: No Adenopathy Results Lab Laboratory Tests 10/01/21 05:03 10/02/21 04:59 Assessment/Plan Assessment/Plan (Tele-ICU Physician , Progress Note ) Available chart/ vitals / labs / Images reviewed Video assessment done using teleICU camera, rest of exam as per RN Discussed with RN , EXAM PER RN Events overnight : bipap 65% Afebrile FiO2 - I/O = even Drips: Pressors: , hemodynamically stable Consultants: Hospital course: 09/24- COVID 09/27 - BIPAP 65% 09/28 - Bipap 85 % , try BUMEX 1 mg 09/29 - still on 80% - bipap 65% 40 L 100% 10/02 - VT 40 L 100% - refused BIPAP A/P ARF/ COVID ( CTA neg for pe 09/24 - Bipap 85 % - REFUSED , 40 L 100% - prone side , IS 1L -repeat cxr - montor for VO COVID PNA - steroids - lovenox full dose - REPAT DDIMER 10/03 - ? change to proph dose Suspected bact PNA- cont abx - stopped 10/01 Abd distention - KUB 10/01 - WNL Lines : periph (Central Line Necessity Reviewed) Nur: void OG: Nutrition: po Analgesia: Anxiety/ delirium VTE Prophylaxis: lamont 100 bid Stress Ulcer Prophylaxis: Glycemic Control: Plans in collaboration with bedside consultants and IM MDs. Discussed with RN to reach out if any questions or concerns A total of 33 minutes of critical care time was devoted to this patient today, required to treat and/or prevent further deterioration of critical care conditi on ( as above) . SURESH SIBLEY MD Oct 02, 2021 10:50
[2021-10-02 21:45] VITALS: BP 104/68
[2021-10-03] MEDS: RT-ALBUTEROL HFA 8.5 GM INHALER IH SCH ×6 (02:55→22:21)
[2021-10-03 05:02] LABS: BASOPHILS # (AUTO) 0.2 10^3/uL (0.0-0.1); BASOPHILS % (AUTO) 1 % (0-10); EOSINOPHILS % (AUTO) 0 % (0-10); HEMATOCRIT 48 % (40-54); HEMOGLOBIN 16.3 g/dL (13.3-17.7); LYMPHOCYTES # (AUTO) 1.6 10^3/uL (1.0-4.0); LYMPHOCYTES % (AUTO) 6 % (12-44); MEAN CORPUSCULAR HEMOGLOBIN 33 pg (25-34); MEAN CORPUSCULAR HGB CONC 34 g/dL (32-36); MEAN CORPUSCULAR VOLUME 97 fL (80-99); MEAN PLATELET VOLUME 9.7 fL (9.0-12.2); MONOCYTES # (AUTO) 1.6 10^3/uL (0.0-1.0); MONOCYTES % (AUTO) 6 % (0-12); NEUTROPHILS # (AUTO) 23.2 10^3/uL (1.8-7.8); NEUTROPHILS % (AUTO) 84 % (42-75); PLATELET COUNT 335 10^3/uL (130-400); WHITE BLOOD COUNT 27.8 10^3/uL (4.3-11.0)
[2021-10-03 05:15] LABS: ALBUMIN 3.1 GM/DL (3.2-4.5); POTASSIUM 4.9 MMOL/L (3.6-5.0)
[2021-10-03 05:18] LABS: TOTAL PROTEIN 6.4 GM/DL (6.4-8.2)
[2021-10-03 05:20] LABS: BILIRUBIN,TOTAL 0.7 MG/DL (0.1-1.0)
[2021-10-03] MEDS: KCL 20 MEQ TAB (K-DUR) PO SCH (05:20)
[2021-10-03] MEDS: POTASSIUM CL 10MEQ/50ML IVPB 50 ML IV SCH (05:20)
[2021-10-03 05:21] LABS: CREATININE SERUM 1.01 MG/DL (0.60-1.30); PHOSPHORUS 4.9 MG/DL (2.3-4.7)
[2021-10-03] MEDS: inSUlin ASPART (NovoLOG) 1 UNIT/0.01 ML (CHARGE PER UNIT) SC SCH ×4 (05:21→21:00)
[2021-10-03 05:24] LABS: MAGNESIUM 2.1 MG/DL (1.6-2.4)
[2021-10-03] MEDS: MAGNESIUM 1 GM/100 ML IVPB 100 ML IV SCH (05:32)
[2021-10-03] MEDS: LOSARTAN 50 MG (COZAAR) TAB PO SCH (08:32)
[2021-10-03] MEDS: ENOXAPARIN 100 MG/1 ML (LOVENOX) SYR SC SCH (08:32)
[2021-10-03] MEDS: MULTIVIT W/MINERALS TAB (THERAGRAN M) PO SCH (08:32)
[2021-10-03] MEDS: ACYCLOVIR 400 MG TABLET (ZOVIRAX) PO SCH ×2 (08:32→21:41)
[2021-10-03] MEDS: ATENOLOL 25 MG (TENORMIN) TAB PO SCH (08:32)
[2021-10-03] MEDS: LACTULOSE SYRUP 10GM/15ML (ENULOSE) 30ML UDC PO SCH ×2 (08:33→21:00)
[2021-10-03] MEDS: SENNA W/DOCUSATE (SENOKOT S) TABLET PO SCH ×2 (08:33→21:00)
[2021-10-03] MEDS: polyethylene glycoL POWDER 17 GM (MIRALAX) PACK PO SCH ×2 (08:33→21:00)
--- NOTE | 2021-10-03 11:45 | Tele-ICU Consult ---
History of Present Illness History of Present Illness Date Seen by Provider: Oct 03, 2021 Time Seen by Provider: 11:44 Date of Admission Allergies and Home Medications Allergies Coded Allergies: No Known Drug Allergies (Unverified , 09/20/21) Home Medications Atenolol 25 Mg Tablet, 25 MG PO DAILY, (Reported) Losartan Potassium 50 Mg Tablet, 50 MG PO DAILY, (Reported) Multivitamin/Iron/Folic Acid 1 Each Tablet, 1 EACH PO DAILY, (Reported) Past Medical/Social/Family Hx Patient Social History Marrital Status: single Tobacco Use?: No Smoking Status: Current Everyday Smoker Use of E-Cig and/or Vaping dev: No Substance use?: No Alcohol Use?: No Pt stated abuse/neglect: No Immunizations Up To Date Influenza Vaccine Up-to-Date: Yes; Up-to-Date First/Initial COVID19 Vaccinat: n/a Current Status Advance Directives: No Communicates: Verbally Primary Language: Maldivian Preferred Spoken Language: Maldivian Is interpretation needed?: No Implanted or Applied Medical D: None Review of Systems Constitutional: see HPI Focused Exam Height, Weight, BMI Height: '" Weight: lbs. oz. kg; 32.28 BMI Method: Exam Exam Patient acknowledged, consented, and participated in this virtual visit which was conducted using real time audio/video Vital Signs Date Time Temp Pulse Resp B/P (MAP) Pulse Ox O2 Delivery O2 Flow Rate FiO2 10/03/21 11:00 75 20 80/61 91 Vapotherm 30.00 60.00 10/03/21 10:55 91 Vapotherm 30.00 60 10/03/21 10:43 92 Vapotherm 30.00 60.00 10/03/21 10:00 80 19 97/66 94 Vapotherm 30.00 70.00 10/03/21 09:39 62 95 70 10/03/21 09:00 87 15 121/78 93 Vapotherm 30.00 70.00 10/03/21 08:32 91 Vapotherm 40.00 70 10/03/21 08:00 81 23 129/69 91 Vapotherm 30.00 70.00 10/03/21 07:40 36.4 10/03/21 07:30 95 Vapotherm 30.00 70 10/03/21 07:00 73 10/03/21 07:00 70 112/70 91 Vapotherm 30.00 70.00 10/03/21 06:31 91 Vapotherm 30.00 70.00 10/03/21 06:24 Vapotherm 30.00 60.00 10/03/21 06:00 71 21 122/82 90 NIV Bilevel 60.00 10/03/21 05:00 71 19 109/78 95 NIV Bilevel 60.00 10/03/21 04:21 94 NIV Bilevel 60 10/03/21 04:12 36.6 10/03/21 04:00 64 20 107/76 94 NIV Bilevel 60.00 10/03/21 03:00 66 18 107/70 94 NIV Bilevel 60.00 10/03/21 02:56 73 20 94 60.00 10/03/21 02:00 67 19 116/79 96 NIV Bilevel 60.00 10/03/21 01:00 78 10/03/21 01:00 75 20 116/79 96 NIV Bilevel 60.00 10/03/21 00:00 79 20 124/74 95 NIV Bilevel 60.00 10/03/21 00:00 35.5 10/02/21 23:59 95 NIV Bilevel 60 10/02/21 23:00 83 18 103/66 94 NIV Bilevel 60.00 10/02/21 22:00 87 19 111/76 93 NIV Bilevel 60.00 10/02/21 21:45 86 22 92 60.00 10/02/21 21:00 NIV Bilevel 60.00 10/02/21 20:00 91 14 155/105 89 Vapotherm 40.00 90.00 10/02/21 20:00 93 Vapotherm 30.00 90 10/02/21 19:49 35.6 10/02/21 19:00 90 21 115/65 90 Vapotherm 40.00 90.00 10/02/21 19:00 84 10/02/21 18:29 91 Vapotherm 30.00 90 10/02/21 18:00 81 15 113/68 91 Vapotherm 40.00 90.00 10/02/21 17:00 91 25 102/71 93 Vapotherm 40.00 90.00 10/02/21 16:09 35.9 10/02/21 16:00 96 20 106/68 91 Vapotherm 40.00 90.00 10/02/21 16:00 90 Vapotherm 40.00 100 10/02/21 15:00 90 13 121/69 90 Vapotherm 40.00 90.00 10/02/21 14:55 92 Vapotherm 30.00 90 10/02/21 14:41 87 10/02/21 14:00 80 16 125/88 90 Vapotherm 40.00 90.00 10/02/21 13:00 92 16 106/73 92 Vapotherm 40.00 90.00 10/02/21 13:00 88 10/02/21 12:00 90 Vapotherm 40.00 100 10/02/21 12:00 36.1 10/02/21 12:00 92 20 96/83 91 Vapotherm 40.00 90.00 I & O 10/03/21 07:00 Intake Total 1390 ml Output Total 2400 ml Balance -1010 ml Height & Weight Height: '" Weight: lbs. oz. kg; 32.28 BMI Method: General Appearance: No Apparent Distress, WD/WN, Chronically ill HEENT: PERRL/EOMI, Normal ENT Inspection, Pharynx Normal, Moist Mucous Membranes Neck: Full Range of Motion, Normal Inspection, Non Tender Respiratory: Lungs Clear, Normal Breath Sounds Cardiovascular: Regular Rate, Rhythm Capillary Refill: Less Than 3 Seconds Gastrointestinal: normal bowel sounds, non tender, soft Extremity: Normal Capillary Refill, Normal Inspection, Normal Range of Motion, Non Tender, No Calf Tenderness, No Pedal Edema Neurologic/Psychiatric: Alert, Oriented x3, No Motor/Sensory Deficits, Normal Mood/Affect Skin: Normal Color, Warm/Dry Lymphatic: No Adenopathy Results Lab Laboratory Tests 10/02/21 04:59 10/03/21 04:46 Assessment/Plan Assessment/Plan (Tele-ICU Physician , consultation) Available chart/ vitals / labs / Images reviewed H&P is from ER notes Patient's information available about PMH, Shx, Fhx allergy reviewed in EMR. ROS as per chart and RN report Video assessment done using teleICU camera, rest of exam as per RN Discussed with RN. Consultants: Hospital course: 10/02 - to ICU with sepsis -shock LEVO , a fib rvr , UTI A/P A fib RVR ( on amio po [employer] - AC as per card - in sinus Sepsis - off pressors UTI - GNR in cx 10/02 - cont cefepime 10/02--> STEPHEN - improved HYperglycemia, DM - insulin gtt to CAD s/p stenting - as per cards Hepatitis C Liver transplant Lines : R IF 10/02 (Central Line Necessity Reviewed) Nur: void OG: Nutrition: Analgesia: Anxiety/ delirium VTE Prophylaxis: lamont 40 Stress Ulcer Prophylaxis: Plans in collaboration with bedside consultants and IM MDs. Discussed with RN to reach out if any questions or concerns A total of 33 minutes of critical care time was devoted to this patient today, required to treat and/or prevent further deterioration of critical care condition ( as above ) . SURESH SIBLEY MD Oct 03, 2021 11:45
--- NOTE | 2021-10-03 11:51 | Tele-ICU Progress Note ---
Subjective Date Seen by a Provider: Oct 03, 2021 Time Seen by a Provider: 11:51 Sepsis Event Evaluation Height, Weight, BMI Height: '" Weight: lbs. oz. kg; 32.28 BMI Method: Exam Exam Patient acknowledged, consented, and participated in this virtual visit which was conducted using real time audio/video Vital Signs Date Time Temp Pulse Resp B/P (MAP) Pulse Ox O2 Delivery O2 Flow Rate FiO2 10/03/21 11:00 75 20 80/61 91 Vapotherm 30.00 60.00 10/03/21 10:55 91 Vapotherm 30.00 60 10/03/21 10:43 92 Vapotherm 30.00 60.00 10/03/21 10:00 80 19 97/66 94 Vapotherm 30.00 70.00 10/03/21 09:39 62 95 70 10/03/21 09:00 87 15 121/78 93 Vapotherm 30.00 70.00 10/03/21 08:32 91 Vapotherm 40.00 70 10/03/21 08:00 81 23 129/69 91 Vapotherm 30.00 70.00 10/03/21 07:40 36.4 10/03/21 07:30 95 Vapotherm 30.00 70 10/03/21 07:00 73 10/03/21 07:00 70 112/70 91 Vapotherm 30.00 70.00 10/03/21 06:31 91 Vapotherm 30.00 70.00 10/03/21 06:24 Vapotherm 30.00 60.00 10/03/21 06:00 71 21 122/82 90 NIV Bilevel 60.00 10/03/21 05:00 71 19 109/78 95 NIV Bilevel 60.00 10/03/21 04:21 94 NIV Bilevel 60 10/03/21 04:12 36.6 10/03/21 04:00 64 20 107/76 94 NIV Bilevel 60.00 10/03/21 03:00 66 18 107/70 94 NIV Bilevel 60.00 10/03/21 02:56 73 20 94 60.00 10/03/21 02:00 67 19 116/79 96 NIV Bilevel 60.00 10/03/21 01:00 78 10/03/21 01:00 75 20 116/79 96 NIV Bilevel 60.00 10/03/21 00:00 79 20 124/74 95 NIV Bilevel 60.00 10/03/21 00:00 35.5 10/02/21 23:59 95 NIV Bilevel 60 10/02/21 23:00 83 18 103/66 94 NIV Bilevel 60.00 10/02/21 22:00 87 19 111/76 93 NIV Bilevel 60.00 10/02/21 21:45 86 22 92 60.00 10/02/21 21:00 NIV Bilevel 60.00 10/02/21 20:00 91 14 155/105 89 Vapotherm 40.00 90.00 10/02/21 20:00 93 Vapotherm 30.00 90 10/02/21 19:49 35.6 10/02/21 19:00 90 21 115/65 90 Vapotherm 40.00 90.00 10/02/21 19:00 84 10/02/21 18:29 91 Vapotherm 30.00 90 10/02/21 18:00 81 15 113/68 91 Vapotherm 40.00 90.00 10/02/21 17:00 91 25 102/71 93 Vapotherm 40.00 90.00 10/02/21 16:09 35.9 10/02/21 16:00 96 20 106/68 91 Vapotherm 40.00 90.00 10/02/21 16:00 90 Vapotherm 40.00 100 10/02/21 15:00 90 13 121/69 90 Vapotherm 40.00 90.00 10/02/21 14:55 92 Vapotherm 30.00 90 10/02/21 14:41 87 10/02/21 14:00 80 16 125/88 90 Vapotherm 40.00 90.00 10/02/21 13:00 92 16 106/73 92 Vapotherm 40.00 90.00 10/02/21 13:00 88 10/02/21 12:00 90 Vapotherm 40.00 100 10/02/21 12:00 36.1 10/02/21 12:00 92 20 96/83 91 Vapotherm 40.00 90.00 I & O 10/03/21 07:00 Intake Total 1390 ml Output Total 2400 ml Balance -1010 ml Height & Weight Height: '" Weight: lbs. oz. kg; 32.28 BMI Method: General Appearance: No Apparent Distress, WD/WN, Chronically ill HEENT: PERRL/EOMI, Normal ENT Inspection, Pharynx Normal, Moist Mucous Membranes Neck: Full Range of Motion, Normal Inspection, Non Tender Respiratory: Lungs Clear, Normal Breath Sounds Cardiovascular: Regular Rate, Rhythm Capillary Refill: Less Than 3 Seconds Gastrointestinal: normal bowel sounds, non tender, soft Extremity: Normal Capillary Refill, Normal Inspection, Normal Range of Motion, Non Tender, No Calf Tenderness, No Pedal Edema Neurologic/Psychiatric: Alert, Oriented x3, No Motor/Sensory Deficits, Normal Mood/Affect Skin: Normal Color, Warm/Dry Lymphatic: No Adenopathy Results Lab Laboratory Tests 10/02/21 04:59 10/03/21 04:46 Assessment/Plan Assessment/Plan (Tele-ICU Physician , Progress Note ) Available chart/ vitals / labs / Images reviewed Video assessment done using teleICU camera, rest of exam as per RN Discussed with RN , EXAM PER RN Events overnight : bipap 65% Afebrile FiO2 - I/O = even Drips: Pressors: , hemodynamically stable Consultants: Hospital course: 09/24- COVID 09/27 - BIPAP 65% 09/28 - Bipap 85 % , try BUMEX 1 mg 09/29 - still on 80% - bipap 65% 40 L 100% 10/02 - VT 40 L 100% - refused BIPAP 10/03 30 L 60% A/P ARF/ COVID ( CTA neg for pe 09/24 - Bipap 85 % - agreed now 30 L 60% - prone side , IS 1L -repeat cxr - montor for VO COVID PNA - steroids was increased to 10 q 8 on 10/01 - START TO TAPER 10/03 - 10 q12 h - lovenox full dose - REPATED DDIMER 10/03 ternding dowl - ? change to proph dose - as per PCP Suspected bact PNA- cont abx - stopped 10/01 Abd distention - KUB 10/01 - WNL Lines : periph (Central Line Necessity Reviewed) Nur: void OG: Nutrition: po Analgesia: Anxiety/ delirium VTE Prophylaxis: lamont 100 bid Stress Ulcer Prophylaxis: Glycemic Control: Plans in collaboration with bedside consultants and IM MDs. Discussed with RN to reach out if any questions or concerns A total of 33 minutes of critical care time was devoted to this patient today, required to treat and/or prevent further deterioration of critical care condition ( as above) . SURESH SIBLEY MD Oct 03, 2021 11:51
--- NOTE | 2021-10-03 12:06 | Progress Note - Hospitalist ---
Subjective HPI/CC On Admission Date Seen by Provider: Oct 03, 2021 Time Seen by Provider: 12:45 CC: Respiratory failure HPI: This is a 55yoWM clinic Pt of [facility] who presents with Covid-19 acute hypoxic respiratory failure. He is currently on BiPAP at 70%, having real difficulty with compliance with change of positions and lying on his side. Patient denies any pain. Check meds and labs. Talked to RN. Subjective/Events-last exam Pt doing really well Using IS Still on Vapotherm 30 liters at 60% Transferring to the floor Will require close monitoring Review of Systems General: Fatigue, Malaise Pulmonary: Dyspnea Objective Exam Vital Signs Vital Signs Date Time Temp Pulse Resp B/P (MAP) Pulse Ox O2 Delivery O2 Flow Rate FiO2 10/04/21 02:45 94 Vapotherm 30.00 60 10/04/21 00:00 36.3 70 18 91/51 Capillary Refill : Less Than 3 Seconds General Appearance: No Apparent Distress, WD/WN, Chronically ill Respiratory: Lungs Clear, Normal Breath Sounds Cardiovascular: Regular Rate, Rhythm Neurologic/Psychiatric: Alert, Oriented x3, No Motor/Sensory Deficits, Normal Mood/Affect Results/Procedures Lab Laboratory Tests 10/04/21 05:30 Patient resulted labs reviewed. Assessment/Plan Assessment and Plan Assess & Plan/Chief Complaint Assessment: Acute hypoxic respiratory failure COVID-19 pneumonia Smoker Hypertension Plan: COVID-19 protocol BiPAP Vapotherm High risk for intubation 09/26/2021: Actemra infusion High risk for intubation 09/27/2021: Actemra BiPAP 09/28/2021: BiPAP dependent 09/29/2021: BiPAP dependent Monitor closely 09/30/2021: BiPAP dependent Still high risk for intubation 10/01/2021: Supportive care Vapotherm transition 10/02/2021: Supportive care Transfer to fourth floor hopefully tomorrow 10/03/2021: Much improved status Transfer to fourth floor Critical Care Critically Ill Patient Diagnosis/Problems Diagnosis/Problems (1) MONSERRAT CHAUDHRY DO Oct 03, 2021 12:06
[2021-10-04] MEDS: RT-ALBUTEROL HFA 8.5 GM INHALER IH SCH ×6 (02:45→21:25)
[2021-10-04 05:43] LABS: BASOPHILS # (AUTO) 0.1 10^3/uL (0.0-0.1); BASOPHILS % (AUTO) 0 % (0-10); EOSINOPHILS % (AUTO) 0 % (0-10); HEMATOCRIT 46 % (40-54); HEMOGLOBIN 16.1 g/dL (13.3-17.7); LYMPHOCYTES # (AUTO) 1.2 10^3/uL (1.0-4.0); LYMPHOCYTES % (AUTO) 5 % (12-44); MEAN CORPUSCULAR HEMOGLOBIN 33 pg (25-34); MEAN CORPUSCULAR HGB CONC 35 g/dL (32-36); MEAN CORPUSCULAR VOLUME 96 fL (80-99); MEAN PLATELET VOLUME 9.7 fL (9.0-12.2); MONOCYTES # (AUTO) 1.3 10^3/uL (0.0-1.0); MONOCYTES % (AUTO) 5 % (0-12); NEUTROPHILS # (AUTO) 22.9 10^3/uL (1.8-7.8); NEUTROPHILS % (AUTO) 86 % (42-75); PLATELET COUNT 307 10^3/uL (130-400); WHITE BLOOD COUNT 26.5 10^3/uL (4.3-11.0)
[2021-10-04 05:53] LABS: ALBUMIN 3.1 GM/DL (3.2-4.5); POTASSIUM 4.5 MMOL/L (3.6-5.0)
[2021-10-04 05:55] LABS: CALCIUM 8.7 MG/DL (8.5-10.1)
[2021-10-04 05:56] LABS: TOTAL PROTEIN 6.1 GM/DL (6.4-8.2)
[2021-10-04] MEDS: inSUlin ASPART (NovoLOG) 1 UNIT/0.01 ML (CHARGE PER UNIT) SC SCH ×4 (05:57→20:52)
[2021-10-04 05:58] LABS: BILIRUBIN,TOTAL 0.8 MG/DL (0.1-1.0)
[2021-10-04 05:59] LABS: CREATININE SERUM 0.96 MG/DL (0.60-1.30)
[2021-10-04] MEDS: MULTIVIT W/MINERALS TAB (THERAGRAN M) PO SCH (08:47)
[2021-10-04] MEDS: ACYCLOVIR 400 MG TABLET (ZOVIRAX) PO SCH ×2 (08:47→20:52)
[2021-10-04] MEDS: LOSARTAN 50 MG (COZAAR) TAB PO SCH (08:47)
[2021-10-04] MEDS: ATENOLOL 25 MG (TENORMIN) TAB PO SCH (08:47)
[2021-10-04] MEDS: ENOXAPARIN 40 MG/0.4 ML (LOVENOX) SYR SC SCH (08:48)
[2021-10-04] MEDS: polyethylene glycoL POWDER 17 GM (MIRALAX) PACK PO SCH ×2 (09:30→19:35)
[2021-10-04] MEDS: SENNA W/DOCUSATE (SENOKOT S) TABLET PO SCH ×2 (09:30→19:36)
[2021-10-04] MEDS: LACTULOSE SYRUP 10GM/15ML (ENULOSE) 30ML UDC PO SCH ×2 (10:41→20:52)
[2021-10-04] MEDS ORDERED: ANTACID SUSP 30 ML UDC (MYLANTA) PO PRN (16:30)
[2021-10-04] MEDS: MELATONIN 3 MG TABLET PO PRN (23:16)
[2021-10-05] MEDS: RT-ALBUTEROL HFA 8.5 GM INHALER IH SCH ×6 (02:49→22:12)
--- NOTE | 2021-10-05 05:58 | Progress Note - Hospitalist ---
Subjective HPI/CC On Admission Date Seen by Provider: Oct 05, 2021 Time Seen by Provider: 11:30 CC: Respiratory failure HPI: This is a 55yoWM clinic Pt of [facility] who presents with Covid-19 acute hypoxic respiratory failure. He is currently on BiPAP at 70%, having real difficulty with compliance with change of positions and lying on his side. Patient denies any pain. Check meds and labs. Talked to RN. Subjective/Events-last exam Patient doing well Patient still on Vapotherm Weaning down O2 today Denies any pain Review of Systems General: Fatigue, Malaise Pulmonary: Dyspnea Neurological: Weakness Objective Exam Vital Signs Vital Signs Date Time Temp Pulse Resp B/P (MAP) Pulse Ox O2 Delivery O2 Flow Rate FiO2 10/05/21 18:47 Vapotherm 20.00 40 10/05/21 16:23 36.0 79 20 102/59 (73) 92 Capillary Refill : Less Than 3 Seconds General Appearance: No Apparent Distress, WD/WN, Chronically ill Respiratory: Lungs Clear, Normal Breath Sounds Cardiovascular: Regular Rate, Rhythm Neurologic/Psychiatric: Alert, Oriented x3 Results/Procedures Lab Laboratory Tests 10/05/21 06:15 Patient resulted labs reviewed. Assessment/Plan Assessment and Plan Assess & Plan/Chief Complaint Assessment: Acute hypoxic respiratory failure COVID-19 pneumonia Smoker Hypertension Plan: COVID-19 protocol BiPAP Vapotherm High risk for intubation 09/26/2021: Actemra infusion High risk for intubation 09/27/2021: Actemra BiPAP 09/28/2021: BiPAP dependent 09/29/2021: BiPAP dependent Monitor closely 09/30/2021: BiPAP dependent Still high risk for intubation 10/01/2021: Supportive care Vapotherm transition 10/02/2021: Supportive care Transfer to fourth floor hopefully tomorrow 10/03/2021: Much improved status Transfer to fourth floor 10/05/2021: Wean down oxygen Critical Care Critically Ill Patient Diagnosis/Problems Diagnosis/Problems (1) MONSERRAT CHAUDHRY DO Oct 05, 2021 05:58
[2021-10-05] MEDS: inSUlin ASPART (NovoLOG) 1 UNIT/0.01 ML (CHARGE PER UNIT) SC SCH ×4 (06:28→20:35)
[2021-10-05 06:43] LABS: BASOPHILS # (AUTO) 0.1 10^3/uL (0.0-0.1); BASOPHILS % (AUTO) 0 % (0-10); EOSINOPHILS % (AUTO) 0 % (0-10); HEMATOCRIT 47 % (40-54); HEMOGLOBIN 15.8 g/dL (13.3-17.7); LYMPHOCYTES # (AUTO) 1.1 10^3/uL (1.0-4.0); LYMPHOCYTES % (AUTO) 4 % (12-44); MEAN CORPUSCULAR HEMOGLOBIN 33 pg (25-34); MEAN CORPUSCULAR HGB CONC 34 g/dL (32-36); MEAN CORPUSCULAR VOLUME 99 fL (80-99); MEAN PLATELET VOLUME 10.6 fL (9.0-12.2); MONOCYTES # (AUTO) 1.5 10^3/uL (0.0-1.0); MONOCYTES % (AUTO) 6 % (0-12); NEUTROPHILS # (AUTO) 21.8 10^3/uL (1.8-7.8); NEUTROPHILS % (AUTO) 85 % (42-75); PLATELET COUNT 254 10^3/uL (130-400); WHITE BLOOD COUNT 25.6 10^3/uL (4.3-11.0)
[2021-10-05 06:58] LABS: ALBUMIN 3.1 GM/DL (3.2-4.5)
[2021-10-05 06:59] LABS: POTASSIUM 4.3 MMOL/L (3.6-5.0)
[2021-10-05 07:00] LABS: CALCIUM 8.4 MG/DL (8.5-10.1)
[2021-10-05 07:01] LABS: TOTAL PROTEIN 5.9 GM/DL (6.4-8.2)
[2021-10-05 07:03] LABS: BILIRUBIN,TOTAL 0.7 MG/DL (0.1-1.0)
[2021-10-05 07:05] LABS: CREATININE SERUM 0.82 MG/DL (0.60-1.30)
[2021-10-05 08:36] VITALS: BP 117/70
[2021-10-05] MEDS: ENOXAPARIN 40 MG/0.4 ML (LOVENOX) SYR SC SCH (09:04)
[2021-10-05] MEDS: MULTIVIT W/MINERALS TAB (THERAGRAN M) PO SCH (09:04)
[2021-10-05] MEDS: LOSARTAN 50 MG (COZAAR) TAB PO SCH (09:04)
[2021-10-05] MEDS: ACYCLOVIR 400 MG TABLET (ZOVIRAX) PO SCH ×2 (09:04→20:44)
[2021-10-05] MEDS: ATENOLOL 25 MG (TENORMIN) TAB PO SCH (09:04)
[2021-10-05] MEDS: polyethylene glycoL POWDER 17 GM (MIRALAX) PACK PO SCH ×2 (09:05→20:34)
[2021-10-05] MEDS: LACTULOSE SYRUP 10GM/15ML (ENULOSE) 30ML UDC PO SCH ×2 (09:05→20:34)
[2021-10-05] MEDS: SENNA W/DOCUSATE (SENOKOT S) TABLET PO SCH ×2 (09:06→20:34)
[2021-10-05] MEDS ORDERED: NS IV 500 ML 500 ML ONE (09:07)
--- NOTE | 2021-10-05 10:34 | Diagnostic Imaging Report ---
Portable erect AP chest at 9:57 AM INDICATION: Respiratory distress FINDINGS: The heart is stable in size when compared to the prior exam of 10/01/2021. The diffuse alveolar/interstitial pulmonary infiltrates noted previously are again evident. Overall, there has been no significant change. If anything, the lungs are perhaps slightly better aerated. The mediastinum is not widened. The osseous structures are intact. IMPRESSION: 1. The lungs may be slightly better aerated on the prior exam but there continues to be persistent diffuse alveolar/interstitial infiltrates bilaterally. Dictated by: Dictated on workstation # [id number]
[2021-10-05 16:23] VITALS: BP 102/59
[2021-10-05] MEDS: MELATONIN 3 MG TABLET PO PRN (20:44)
[2021-10-05 23:15] VITALS: BP 116/76
[2021-10-06] MEDS: RT-ALBUTEROL HFA 8.5 GM INHALER IH SCH ×6 (02:27→22:00)
[2021-10-06] MEDS: inSUlin ASPART (NovoLOG) 1 UNIT/0.01 ML (CHARGE PER UNIT) SC SCH ×4 (04:50→21:10)
--- NOTE | 2021-10-06 07:21 | Progress Note - Hospitalist ---
Subjective HPI/CC On Admission Date Seen by Provider: Oct 06, 2021 Time Seen by Provider: 11:30 CC: Respiratory failure HPI: This is a 55yoWM clinic Pt of [facility] who presents with Covid-19 acute hypoxic respiratory failure. He is currently on BiPAP at 70%, having real difficulty with compliance with change of positions and lying on his side. Patient denies any pain. Check meds and labs. Talked to RN. Subjective/Events-last exam Patient much improved Off Vapotherm High flow oxygen to maintain Check meds labs Review of Systems General: Fatigue, Malaise Pulmonary: Dyspnea Objective Exam Vital Signs Vital Signs Date Time Temp Pulse Resp B/P (MAP) Pulse Ox O2 Delivery O2 Flow Rate FiO2 10/07/21 02:13 93 High Flow N/C 10.00 10/06/21 23:50 36.5 68 16 112/72 (85) 10/06/21 18:35 80 Capillary Refill : Less Than 3 Seconds General Appearance: No Apparent Distress, WD/WN, Chronically ill Respiratory: Lungs Clear, Normal Breath Sounds, Decreased Breath Sounds Cardiovascular: Regular Rate, Rhythm Neurologic/Psychiatric: Alert, Oriented x3, No Motor/Sensory Deficits, Normal Mood/Affect Results/Procedures Lab Patient resulted labs reviewed. Assessment/Plan Assessment and Plan Assess & Plan/Chief Complaint Assessment: Acute hypoxic respiratory failure COVID-19 pneumonia Smoker Hypertension Plan: COVID-19 protocol BiPAP Vapotherm High risk for intubation 09/26/2021: Actemra infusion High risk for intubation 09/27/2021: Actemra BiPAP 09/28/2021: BiPAP dependent 09/29/2021: BiPAP dependent Monitor closely 09/30/2021: BiPAP dependent Still high risk for intubation 10/01/2021: Supportive care Vapotherm transition 10/02/2021: Supportive care Transfer to fourth floor hopefully tomorrow 10/03/2021: Much improved status Transfer to fourth floor 10/05/2021: Wean down oxygen 10/06/2021: Supportive care Wean down oxygen Critical Care Critically Ill Patient Diagnosis/Problems Diagnosis/Problems (1) MONSERRAT CHAUDHRY DO Oct 06, 2021 07:21
[2021-10-06 08:00] VITALS: BP 125/70
[2021-10-06] MEDS: MULTIVIT W/MINERALS TAB (THERAGRAN M) PO SCH (08:44)
[2021-10-06] MEDS: ACYCLOVIR 400 MG TABLET (ZOVIRAX) PO SCH ×2 (08:44→21:10)
[2021-10-06] MEDS: ATENOLOL 25 MG (TENORMIN) TAB PO SCH (08:44)
[2021-10-06] MEDS: LOSARTAN 50 MG (COZAAR) TAB PO SCH (08:44)
[2021-10-06] MEDS: ENOXAPARIN 40 MG/0.4 ML (LOVENOX) SYR SC SCH (08:44)
[2021-10-06] MEDS: LACTULOSE SYRUP 10GM/15ML (ENULOSE) 30ML UDC PO SCH ×2 (08:44→21:10)
[2021-10-06] MEDS: polyethylene glycoL POWDER 17 GM (MIRALAX) PACK PO SCH ×2 (08:45→21:10)
[2021-10-06] MEDS: SENNA W/DOCUSATE (SENOKOT S) TABLET PO SCH ×2 (08:45→21:10)
[2021-10-06 16:00] VITALS: BP 118/72
[2021-10-06 19:34] VITALS: BP 123/78
[2021-10-06] MEDS: MELATONIN 3 MG TABLET PO PRN (21:16)
[2021-10-06 23:50] VITALS: BP 112/72
[2021-10-07] MEDS: RT-ALBUTEROL HFA 8.5 GM INHALER IH SCH ×6 (02:13→22:08)
[2021-10-07] MEDS: inSUlin ASPART (NovoLOG) 1 UNIT/0.01 ML (CHARGE PER UNIT) SC SCH ×4 (05:16→20:50)
[2021-10-07 06:53] LABS: BASOPHILS # (AUTO) 0.1 10^3/uL (0.0-0.1); BASOPHILS % (AUTO) 1 % (0-10); EOSINOPHILS # (AUTO) 0.2 10^3/uL (0.0-0.3); EOSINOPHILS % (AUTO) 1 % (0-10); HEMATOCRIT 48 % (40-54); HEMOGLOBIN 16.5 g/dL (13.3-17.7); LYMPHOCYTES # (AUTO) 1.9 10^3/uL (1.0-4.0); LYMPHOCYTES % (AUTO) 9 % (12-44); MEAN CORPUSCULAR HEMOGLOBIN 34 pg (25-34); MEAN CORPUSCULAR HGB CONC 34 g/dL (32-36); MEAN CORPUSCULAR VOLUME 98 fL (80-99); MEAN PLATELET VOLUME 9.9 fL (9.0-12.2); MONOCYTES # (AUTO) 1.5 10^3/uL (0.0-1.0); MONOCYTES % (AUTO) 7 % (0-12); NEUTROPHILS # (AUTO) 15.5 10^3/uL (1.8-7.8); NEUTROPHILS % (AUTO) 76 % (42-75); PLATELET COUNT 240 10^3/uL (130-400); WHITE BLOOD COUNT 20.5 10^3/uL (4.3-11.0)
[2021-10-07 07:30] LABS: ALBUMIN 3.1 GM/DL (3.2-4.5); BILIRUBIN,TOTAL 0.9 MG/DL (0.1-1.0); CALCIUM 8.6 MG/DL (8.5-10.1); CREATININE SERUM 1.02 MG/DL (0.60-1.30); POTASSIUM 4.3 MMOL/L (3.6-5.0); TOTAL PROTEIN 5.7 GM/DL (6.4-8.2)
[2021-10-07 07:59] LABS: LYMPHOCYTES % (MANUAL) 12 %; MONOCYTES % (MANUAL) 8 %; NEUTROPHILS % (MANUAL) 80 %; RBC MORPH NORMAL
[2021-10-07 08:02] VITALS: BP 113/71
[2021-10-07] MEDS: ENOXAPARIN 40 MG/0.4 ML (LOVENOX) SYR SC SCH (09:07)
[2021-10-07] MEDS: LOSARTAN 50 MG (COZAAR) TAB PO SCH (09:07)
[2021-10-07] MEDS: ACYCLOVIR 400 MG TABLET (ZOVIRAX) PO SCH ×2 (09:07→20:50)
[2021-10-07] MEDS: ATENOLOL 25 MG (TENORMIN) TAB PO SCH (09:07)
[2021-10-07] MEDS: MULTIVIT W/MINERALS TAB (THERAGRAN M) PO SCH (09:07)
[2021-10-07] MEDS: SENNA W/DOCUSATE (SENOKOT S) TABLET PO SCH ×2 (09:10→20:50)
[2021-10-07] MEDS: LACTULOSE SYRUP 10GM/15ML (ENULOSE) 30ML UDC PO SCH ×2 (09:11→20:50)
[2021-10-07] MEDS: polyethylene glycoL POWDER 17 GM (MIRALAX) PACK PO SCH ×2 (09:11→20:50)
[2021-10-07 16:08] VITALS: BP 103/66
--- NOTE | 2021-10-07 19:23 | Progress Note ---
Subjective Subjective/Events-last exam States he is feeling better today, denies concerns or questions. Objective Exam Last Set of Vital Signs Vital Signs Date Time Temp Pulse Resp B/P (MAP) Pulse Ox O2 Delivery O2 Flow Rate FiO2 10/07/21 18:53 93 High Flow N/C 9.00 10/07/21 16:08 36.1 82 18 103/66 (78) 10/06/21 18:35 80 Capillary Refill : Less Than 3 Seconds I&O Intake and Output 10/07/21 00:00 Intake Total 2510 ml Output Total 3000 ml Balance -490 ml Intake Oral 2510 ml Output Urine Total 3000 ml General: Alert, No Acute Distress Lungs: Other (ronchi) Heart: Regular Rate, No Murmurs Abdomen: Normal Bowel Sounds, Soft Extremities: No Edema Neuro: Normal Speech Psych/Mental Status: Mood NL Results/Procedures Lab Laboratory Tests 10/06/21 20:35: Glucometer 160H 10/07/21 05:04: Glucometer 107 10/07/21 06:44: White Blood Count 20.5H, Red Blood Count 4.91, Hemoglobin 16.5, Hematocrit 48, Mean Corpuscular Volume 98, Mean Corpuscular Hemoglobin 34, Mean Corpuscular Hemoglobin Concent 34, Red Cell Distribution Width 13.2, Platelet Count 240, Mean Platelet Volume 9.9, Immature Granulocyte % (Auto) 6, Neutrophils (%) (Auto) 76H, Lymphocytes (%) (Auto) 9L, Monocytes (%) (Auto) 7, Eosinophils (%) (Auto) 1, Basophils (%) (Auto) 1, Neutrophils # (Auto) 15.5H, Lymphocytes # (Auto) 1.9, Monocytes # (Auto) 1.5H, Eosinophils # (Auto) 0.2, Basophils # (Auto) 0.1, Immature Granulocyte # (Auto) 1.3H, Neutrophils % (Manual) 80, Lymphocytes % (Manual) 12, Monocytes % (Manual) 8, Blood Morphology Comment NORMAL, Sodium Level 134L, Potassium Level 4.3, Chloride Level 104, Carbon Dioxide Level 21, Anion Gap 9, Blood Urea Nitrogen 29H, Creatinine 1.02, Estimat Glomerular Filtration Rate 75, BUN/Creatinine Ratio 28, Glucose Level 96, Calcium Level 8.6, Corrected Calcium 9.3, Total Bilirubin 0.9, Aspartate Amino Transf (AST/SGOT) 19, Alanine Aminotransferase (ALT/SGPT) 72H, Alkaline Phosphatase 71, Total Protein 5.7L, Albumin 3.1L 10/07/21 11:33: Glucometer 149H 10/07/21 15:48: Glucometer 141H Microbiology 09/25/21 MRSA Screen - Final, Complete MRSA not isolated 09/24/21 Blood Culture - Final, Complete Propionibacterium species Assessment/Plan Assessment/Plan (1) COVID Status: Acute Assessment & Plan: s/p Actemra, on acyclovir ppx. On dexamethasone. (2) Acute respiratory failure Status: Acute Assessment & Plan: Secondary to COVID19 pneumonia. CTA neg for PE on admit. Initially requiring bipap, currently on 10 lpm supplemental oxygen. Qualifiers: Qualified Codes: J96.01 - Acute respiratory failure with hypoxia (3) Elevated liver enzymes Status: Acute Assessment & Plan: AST down to normal, ALT trending down, suspect due to covid infection itself, monitor. (4) DVT prophylaxis Status: Acute Assessment & Plan: Enoxaparin MILAD TAVAREZ MD Oct 07, 2021 19:23
[2021-10-07] MEDS: MELATONIN 3 MG TABLET PO PRN (20:50)
[2021-10-07 23:32] VITALS: BP 112/74
[2021-10-08] MEDS: RT-ALBUTEROL HFA 8.5 GM INHALER IH SCH ×6 (02:35→21:22)
[2021-10-08 05:52] LABS: HEMATOCRIT 47 % (40-54); HEMOGLOBIN 16.5 g/dL (13.3-17.7); MEAN CORPUSCULAR HEMOGLOBIN 34 pg (25-34); MEAN CORPUSCULAR HGB CONC 35 g/dL (32-36); MEAN CORPUSCULAR VOLUME 97 fL (80-99); PLATELET COUNT 230 10^3/uL (130-400); WHITE BLOOD COUNT 22.5 10^3/uL (4.3-11.0)
[2021-10-08] MEDS: inSUlin ASPART (NovoLOG) 1 UNIT/0.01 ML (CHARGE PER UNIT) SC SCH ×4 (06:13→20:40)
[2021-10-08 06:24] LABS: ALBUMIN 3.1 GM/DL (3.2-4.5); POTASSIUM 4.2 MMOL/L (3.6-5.0)
[2021-10-08 06:25] LABS: CALCIUM 8.1 MG/DL (8.5-10.1)
[2021-10-08 06:27] LABS: TOTAL PROTEIN 5.7 GM/DL (6.4-8.2)
[2021-10-08 06:28] LABS: BILIRUBIN,TOTAL 0.7 MG/DL (0.1-1.0)
[2021-10-08 06:30] LABS: CREATININE SERUM 0.87 MG/DL (0.60-1.30)
[2021-10-08 07:56] VITALS: BP 121/66
[2021-10-08] MEDS: ATENOLOL 25 MG (TENORMIN) TAB PO SCH (09:00)
[2021-10-08] MEDS: MULTIVIT W/MINERALS TAB (THERAGRAN M) PO SCH (09:00)
[2021-10-08] MEDS: LOSARTAN 50 MG (COZAAR) TAB PO SCH (09:00)
[2021-10-08] MEDS: ACYCLOVIR 400 MG TABLET (ZOVIRAX) PO SCH ×2 (09:00→21:22)
[2021-10-08] MEDS: ENOXAPARIN 40 MG/0.4 ML (LOVENOX) SYR SC SCH (09:01)
[2021-10-08] MEDS: SENNA W/DOCUSATE (SENOKOT S) TABLET PO SCH ×2 (09:01→20:41)
[2021-10-08] MEDS: LACTULOSE SYRUP 10GM/15ML (ENULOSE) 30ML UDC PO SCH ×2 (09:01→20:41)
[2021-10-08] MEDS: polyethylene glycoL POWDER 17 GM (MIRALAX) PACK PO SCH ×2 (09:01→20:41)
[2021-10-08 15:33] VITALS: BP 104/62
--- NOTE | 2021-10-08 17:47 | Progress Note ---
Subjective Subjective/Events-last exam Afebrile, states he is feeling well, denies concerns. Objective Exam Last Set of Vital Signs Vital Signs Date Time Temp Pulse Resp B/P (MAP) Pulse Ox O2 Delivery O2 Flow Rate FiO2 10/08/21 15:33 36.1 84 20 104/62 (76) 94 High Flow N/C 6.00 10/08/21 10:14 Capillary Refill : Less Than 3 Seconds I&O Intake and Output 10/08/21 00:00 Intake Total 1760 ml Output Total 1625 ml Balance 135 ml Intake Oral 1760 ml Output Urine Total 1625 ml # Voids 2 General: Alert, No Acute Distress Lungs: Other (ronchi) Heart: Regular Rate, No Murmurs Abdomen: Normal Bowel Sounds Neuro: Normal Speech Psych/Mental Status: Mood NL Results/Procedures Lab Laboratory Tests 10/07/21 20:17: Glucometer 161H 10/08/21 05:30: Glucometer 114H 10/08/21 05:45: White Blood Count 22.5H, Red Blood Count 4.88, Hemoglobin 16.5, Hematocrit 47, Mean Corpuscular Volume 97, Mean Corpuscular Hemoglobin 34, Mean Corpuscular Hemoglobin Concent 35, Red Cell Distribution Width 13.2, Platelet Count 230, Mean Platelet Volume 10.0, Sodium Level 133L, Potassium Level 4.2, Chloride Level 105, Carbon Dioxide Level 20L, Anion Gap 8, Blood Urea Nitrogen 28H, Creatinine 0.87, Estimat Glomerular Filtration Rate 90, BUN/Creatinine Ratio 32, Glucose Level 107H, Calcium Level 8.1L, Corrected Calcium 8.8, Total Bilirubin 0.7, Aspartate Amino Transf (AST/SGOT) 16, Alanine Aminotransferase (ALT/SGPT) 65H, Alkaline Phosphatase 73, Total Protein 5.7L, Albumin 3.1L 10/08/21 10:34: Glucometer 219H 10/08/21 15:32: Glucometer 154H Microbiology 09/25/21 MRSA Screen - Final, Complete MRSA not isolated 09/24/21 Blood Culture - Final, Complete Propionibacterium species Assessment/Plan Assessment/Plan (1) COVID Status: Acute Assessment & Plan: s/p Actemra, on acyclovir ppx. On dexamethasone. 10/08 has received dexamethasone for 10 days, will d/c (2) Acute respiratory failure Status: Acute Assessment & Plan: Secondary to COVID19 pneumonia. CTA neg for PE on admit. Initially requiring bipap, currently on 10 lpm supplemental oxygen. 10/08 slowly improving, on 7 lpm today Qualifiers: Qualified Codes: J96.01 - Acute respiratory failure with hypoxia (3) Elevated liver enzymes Status: Acute Assessment & Plan: AST down to normal, ALT trending down, suspect due to covid infection itself, monitor. (4) DVT prophylaxis Status: Acute Assessment & Plan: Enoxaparin MILAD TAVAREZ MD Oct 08, 2021 17:47
[2021-10-08 23:12] VITALS: BP 110/68
[2021-10-09] MEDS: RT-ALBUTEROL HFA 8.5 GM INHALER IH SCH ×5 (02:52→21:45)
[2021-10-09] MEDS: inSUlin ASPART (NovoLOG) 1 UNIT/0.01 ML (CHARGE PER UNIT) SC SCH ×4 (04:47→21:25)
[2021-10-09 07:09] LABS: HEMATOCRIT 47 % (40-54); HEMOGLOBIN 16.2 g/dL (13.3-17.7); MEAN CORPUSCULAR HEMOGLOBIN 33 pg (25-34); MEAN CORPUSCULAR HGB CONC 34 g/dL (32-36); MEAN CORPUSCULAR VOLUME 97 fL (80-99); MEAN PLATELET VOLUME 9.9 fL (9.0-12.2); PLATELET COUNT 228 10^3/uL (130-400); WHITE BLOOD COUNT 20.5 10^3/uL (4.3-11.0)
[2021-10-09 07:35] VITALS: BP 115/66
[2021-10-09 07:38] LABS: ALBUMIN 3.1 GM/DL (3.2-4.5); BILIRUBIN,TOTAL 0.9 MG/DL (0.1-1.0); CALCIUM 8.4 MG/DL (8.5-10.1); CREATININE SERUM 0.89 MG/DL (0.60-1.30); POTASSIUM 4.3 MMOL/L (3.6-5.0); TOTAL PROTEIN 5.7 GM/DL (6.4-8.2)
[2021-10-09] MEDS: ACYCLOVIR 400 MG TABLET (ZOVIRAX) PO SCH ×2 (08:40→21:36)
[2021-10-09] MEDS: MULTIVIT W/MINERALS TAB (THERAGRAN M) PO SCH (08:40)
[2021-10-09] MEDS: ATENOLOL 25 MG (TENORMIN) TAB PO SCH (08:40)
[2021-10-09] MEDS: LOSARTAN 50 MG (COZAAR) TAB PO SCH (08:41)
[2021-10-09] MEDS: ENOXAPARIN 40 MG/0.4 ML (LOVENOX) SYR SC SCH (08:41)
[2021-10-09] MEDS: SENNA W/DOCUSATE (SENOKOT S) TABLET PO SCH ×2 (08:42→21:49)
[2021-10-09] MEDS: LACTULOSE SYRUP 10GM/15ML (ENULOSE) 30ML UDC PO SCH ×2 (08:42→21:49)
[2021-10-09] MEDS: polyethylene glycoL POWDER 17 GM (MIRALAX) PACK PO SCH ×2 (08:42→21:49)
--- NOTE | 2021-10-09 13:21 | Progress Note ---
Subjective Subjective/Events-last exam Afebrile, continues to feel better, has occasional feeling winded but overall states he feels good. Objective Exam Last Set of Vital Signs Vital Signs Date Time Temp Pulse Resp B/P (MAP) Pulse Ox O2 Delivery O2 Flow Rate FiO2 10/09/21 11:16 High Flow N/C 4.00 10/09/21 11:16 95 10/09/21 07:35 36.2 63 20 115/66 (82) 10/08/21 10:14 Capillary Refill : Less Than 3 Seconds I&O Intake and Output 10/09/21 00:00 Intake Total 2080 ml Output Total 2775 ml Balance -695 ml Intake Oral 2080 ml Output Urine Total 2775 ml # Voids 3 # Bowel Movements 1 General: Alert, No Acute Distress Lungs: Clear to Auscultation, Normal Air Movement Heart: Regular Rate, No Murmurs Neuro: Normal Speech Psych/Mental Status: Mood NL Results/Procedures Lab Laboratory Tests 10/08/21 15:32: Glucometer 154H 10/08/21 20:22: Glucometer 139H 10/09/21 04:44: Glucometer 115H 10/09/21 06:53: White Blood Count 20.5H, Red Blood Count 4.89, Hemoglobin 16.2, Hematocrit 47, Mean Corpuscular Volume 97, Mean Corpuscular Hemoglobin 33, Mean Corpuscular Hemoglobin Concent 34, Red Cell Distribution Width 13.2, Platelet Count 228, Mean Platelet Volume 9.9, Sodium Level 135, Potassium Level 4.3, Chloride Level 107, Carbon Dioxide Level 18L, Anion Gap 10, Blood Urea Nitrogen 24H, Creatinine 0.89, Estimat Glomerular Filtration Rate 88, BUN/Creatinine Ratio 27, Glucose Level 90, Calcium Level 8.4L, Corrected Calcium 9.1, Total Bilirubin 0.9, Aspartate Amino Transf (AST/SGOT) 18, Alanine Aminotransferase (ALT/SGPT) 61H, Alkaline Phosphatase 68, Total Protein 5.7L, Albumin 3.1L 10/09/21 10:44: Glucometer 107 Microbiology 09/25/21 MRSA Screen - Final, Complete MRSA not isolated 09/24/21 Blood Culture - Final, Complete Propionibacterium species Assessment/Plan Assessment/Plan (1) COVID Status: Acute Assessment & Plan: s/p Actemra, on acyclovir ppx. On dexamethasone. 10/08 has received dexamethasone for 10 days, will d/c (2) Acute respiratory failure Status: Acute Assessment & Plan: Secondary to COVID19 pneumonia. CTA neg for PE on admit. Initially requiring bipap, currently on 10 lpm supplemental oxygen. 10/08 slowly improving, on 7 lpm today 10/09 weaned to 6 lpm today Qualifiers: Qualified Codes: J96.01 - Acute respiratory failure with hypoxia (3) Elevated liver enzymes Status: Acute Assessment & Plan: AST down to normal, ALT trending down, suspect due to covid infection itself, monitor. (4) DVT prophylaxis Status: Acute Assessment & Plan: Enoxaparin MILAD TAVAREZ MD Oct 09, 2021 13:21
[2021-10-09 13:43] VITALS: BP 115/66
[2021-10-09 15:37] VITALS: BP 104/63
[2021-10-09 20:45] VITALS: BP 109/62
[2021-10-09] MEDS: ALPRAZolam 0.25 MG (XANAX) TAB PO PRN (21:38)
[2021-10-10 00:20] VITALS: BP 108/67
[2021-10-10] MEDS: RT-ALBUTEROL HFA 8.5 GM INHALER IH SCH ×2 (02:54→07:30)
[2021-10-10] MEDS: inSUlin ASPART (NovoLOG) 1 UNIT/0.01 ML (CHARGE PER UNIT) SC SCH ×2 (06:29→11:17)
[2021-10-10 07:15] LABS: HEMATOCRIT 50 % (40-54); HEMOGLOBIN 16.9 g/dL (13.3-17.7); MEAN CORPUSCULAR HEMOGLOBIN 34 pg (25-34); MEAN CORPUSCULAR HGB CONC 34 g/dL (32-36); MEAN CORPUSCULAR VOLUME 99 fL (80-99); MEAN PLATELET VOLUME 9.5 fL (9.0-12.2); PLATELET COUNT 206 10^3/uL (130-400); WHITE BLOOD COUNT 13.9 10^3/uL (4.3-11.0)
[2021-10-10 07:40] LABS: ALBUMIN 3.1 GM/DL (3.2-4.5); BILIRUBIN,TOTAL 0.7 MG/DL (0.1-1.0); CALCIUM 8.5 MG/DL (8.5-10.1); CREATININE SERUM 0.99 MG/DL (0.60-1.30); POTASSIUM 4.4 MMOL/L (3.6-5.0); TOTAL PROTEIN 5.7 GM/DL (6.4-8.2)
[2021-10-10 08:03] VITALS: BP 101/66
[2021-10-10] MEDS: ATENOLOL 25 MG (TENORMIN) TAB PO SCH (09:44)
[2021-10-10] MEDS: ENOXAPARIN 40 MG/0.4 ML (LOVENOX) SYR SC SCH (09:44)
[2021-10-10] MEDS: MULTIVIT W/MINERALS TAB (THERAGRAN M) PO SCH (09:44)
[2021-10-10] MEDS: ACYCLOVIR 400 MG TABLET (ZOVIRAX) PO SCH (09:44)
[2021-10-10] MEDS: LOSARTAN 50 MG (COZAAR) TAB PO SCH (09:44)
[2021-10-10] MEDS: LACTULOSE SYRUP 10GM/15ML (ENULOSE) 30ML UDC PO SCH (11:13)
[2021-10-10] MEDS: polyethylene glycoL POWDER 17 GM (MIRALAX) PACK PO SCH (11:13)
[2021-10-10] MEDS: SENNA W/DOCUSATE (SENOKOT S) TABLET PO SCH (11:13)
[2021-10-10] MEDS ORDERED: ACYC400T21 PO (11:49)
--- NOTE | 2021-10-10 11:52 | Discharge Summary ---
Discharge Summary Hospital Course Problems/Diagnosis: (1) COVID Status: Acute Assessment & Plan: s/p Actemra, on acyclovir ppx- continued until Oct 27 on d/c. 10/08 has received dexamethasone for 10 days, will d/c (2) Acute respiratory failure Status: Acute Assessment & Plan: Secondary to COVID19 pneumonia. CTA neg for PE on admit. Initially requiring bipap, currently on 10 lpm supplemental oxygen. 10/08 slowly improving, on 7 lpm today 10/09 weaned to 6 lpm today 10/10 able to maintain oxygenation on room, only required 2 lpm supplemental oxygen with exercise. Qualifiers: Qualified Codes: J96.01 - Acute respiratory failure with hypoxia (3) Elevated liver enzymes Status: Acute Assessment & Plan: AST down to normal, ALT trending down, suspect due to covid infection itself, monitor, needs repeat outpatient. Hospital Course Date of Admission: Sep 24, 2021 at 19:48 Admission Diagnosis : Family Physician/Provider: Atilio Kirk MD Date of Discharge: 10/10/21 Discharge Diagnosis: See problem list Hospital Course: See problem list Labs and Pending Lab Test: Laboratory Tests 10/09/21 15:36: Glucometer 109 10/09/21 20:49: Glucometer 95 10/10/21 06:15: Glucometer 92 10/10/21 07:04: White Blood Count 13.9H, Red Blood Count 5.05, Hemoglobin 16.9, Hematocrit 50, Mean Corpuscular Volume 99, Mean Corpuscular Hemoglobin 34, Mean Corpuscular Hemoglobin Concent 34, Red Cell Distribution Width 13.6, Platelet Count 206, Mean Platelet Volume 9.5, Sodium Level 136, Potassium Level 4.4, Chloride Level 107, Carbon Dioxide Level 19L, Anion Gap 10, Blood Urea Nitrogen 27H, Creatinine 0.99, Estimat Glomerular Filtration Rate 78, BUN/Creatinine Ratio 27, Glucose Level 91, Calcium Level 8.5, Corrected Calcium 9.2, Total Bilirubin 0.7, Aspartate Amino Transf (AST/SGOT) 20, Alanine Aminotransferase (ALT/SGPT) 66H, Alkaline Phosphatase 76, Total Protein 5.7L, Albumin 3.1L 10/10/21 11:00: Glucometer 115H Microbiology 09/25/21 MRSA Screen - Final, Complete MRSA not isolated 09/24/21 Blood Culture - Final, Complete Propionibacterium species Home Meds Active Acyclovir 400 Mg Tablet 400 Mg PO BID Reported Centrum Adults Tablet (Multivitamin/Iron/Folic Acid) 1 Each Tablet 1 Each PO DAILY Losartan Potassium 50 Mg Tablet 50 Mg PO DAILY Atenolol 25 Mg Tablet 25 Mg PO DAILY Assessment/Pt DC Instructions Follow up with primary doctor within a week of discharge. Discharge Diet: No Restrictions Activity as Tolerated: Yes Discharge Physical Examination Allergies: Coded Allergies: No Known Drug Allergies (Unverified , 09/20/21) General Appearance: No Apparent Distress, WD/WN Respiratory: Lungs Clear, Normal Breath Sounds Cardiovascular: Regular Rate, Rhythm, No Murmur Gastrointestinal: Normal Bowel Sounds Extremity: No Pedal Edema Skin: Normal Color, Warm/Dry Neurologic/Psychiatric: Alert, Normal Mood/Affect MILAD TAVAREZ MD Oct 10, 2021 11:52
== END 2021-10-10 14:33 | disposition home or self-care (01) | DRG 177 ==
LOC: EDUNIT# 15:53 → ER FS 15:54 → ICU 19:48 → 4TH 10-03 17:54
PROVIDERS: ADMIT Internal Medicine; ATTEND Family Medicine
PROC: 5A09557 Assistance with Respiratory Ventilation, Greater than 96 Consecutive Hours, Continuous Positive Airway Pressure (ICD-10-PCS; principal; 2021-09-24)
DX: U07.1 COVID-19 (principal); J12.82 Pneumonia due to coronavirus disease 2019; J96.01 Acute respiratory failure with hypoxia; J15.9 Unspecified bacterial pneumonia; Z73.0 Burn-out; F17.210 Nicotine dependence, cigarettes, uncomplicated; I10 Essential (primary) hypertension
CPT/HCPCS: 36415; 71045; 71275; 74018; 80053; 82805; 82947; 83605; 83735; 83880; 84100; 84484; 85007; 85025; 85027; 85379; 85610; 85730; 87040; 87081; 93005; 94640; 94660; 94760; 94761; 96374; 96375; 99291